=== PATIENT | female | born 1940 | race Two or more races ===

== ENCOUNTER 2024-01-03 22:57 | Emergency (ER) | payer OTHER, SELFPAY ==
[2024-01-03 22:58] VITALS: BMI 30.2
[2024-01-03 23:06] VITALS: BP 150/79; PULSE 86; RESP 18; TEMP 36.8; O2SAT 95
--- NOTE | 2024-01-03 23:18 | XR_ITS ---
Examination: CT brain head without contrast. 2-D sagittal coronal reconstructions Date and time of exam:January 03, 2024 11:26 PM Indications: Headaches high blood pressure and numbness in the hands today Comparison: April 30, 2023 CTDI: vol (mGy):52.80 DLP: (mGycm):1134 Technique: Multiple CT axial sections of the brain have been obtained, 5 mm slice thickness. Contrast has not been administered. 2-D sagittal, coronal reconstructions have been obtained Low dose protocols were performed. One or more of the following dose reduction techniques were used; automated exposure control, adjustment of the mA and/or KV according to patient size, use of iterative reconstruction technique. Findings: No significant ventricular enlargement. Intra-axial or extra-axial hemorrhage density is not seen. No mass effect or midline shift Basal cisterns are not remarkable. Fourth ventricle is midline. Cranial vault intact. Impression: Negative for acute hemorrhage, mass effect or midline shift
--- NOTE | 2024-01-03 23:19 | PD.EDRME ---
Rapid Medical Screening Exam E Arrival date/time: 01/03/24 22:57 83-year-old female with past medical history of diabetes, hyperlipidemia, complaining of headache and headache pressure has been ongoing for 4 days. Chief Complaint: Headache Time Seen by Provider: 01/03/24 23:14 Vital signs: Vital Signs Temperature 98.3 F 01/03/24 23:06 Pulse Rate 86 01/03/24 23:06 Respiratory Rate 18 01/03/24 23:06 Blood Pressure 150/79 H 01/03/24 23:06 Pulse Oximetry (%) 95 01/03/24 23:06 Oxygen Delivery Method Room Air 01/03/24 23:06 Vital signs reviewed by provider: Yes
--- NOTE | 2024-01-04 00:13 | PD.EDHA ---
ED Headache RME/HPI General Chief Complaint: Headache Stated Complaint: THINKS BP IS HIGH. HEADACHE;NIRMALA HANDS NUMBNESS Time Seen by Provider: 01/03/24 23:14 Source: patient and family Arrival date/time: 01/03/24 22:57 83-year-old female with past medical history of diabetes, hyperlipidemia, complaining of headache and head pressure has been ongoing for 4 days. Patient denies any chills, fever, cough, shortness of breath, nausea vomiting, chest pain, diarrhea, dizziness, extremity weakness, or any other associated symptoms. Mode of arrival: ambulatory Limitations: no limitations RME / HPI RME / HPI Narrative: 01/03/24 22:57 83-year-old female with past medical history of diabetes, hyperlipidemia, complaining of headache and headache pressure has been ongoing for 4 days. Related Data Home Medications ?Medication ?Instructions ?Recorded ?Confirmed aspirin 81 mg tablet,delayed 81 mg PO DAILY 07/02/22 04/30/23 release metformin 1,000 mg tablet 1,000 mg PO BID 07/02/22 04/30/23 pantoprazole 40 mg tablet,delayed 40 mg PO DAILY 07/02/22 04/30/23 release propranolol 40 mg tablet 20 mg PO BID 07/02/22 04/30/23 ibuprofen 600 mg tablet 600 mg PO TID PRN Pain 04/30/23 04/30/23 loratadine 10 mg tablet 10 mg PO QDAY PRN Allergy Symptoms 04/30/23 04/30/23 montelukast 10 mg tablet 10 mg PO QPM 04/30/23 04/30/23 Previous Rx's ?Medication ?Instructions ?Recorded albuterol sulfate 90 mcg/actuation 2 puff inhalation Q6H PRN 02/01/23 aerosol inhaler (Ventolin HFA) shortness of breath or wheezing #8.5 grams ibuprofen 400 mg tablet 400 mg PO Q8H PRN pain #14 tabs 01/04/24 Allergies Allergy/AdvReac Type Severity Reaction Status Date / Time No Known Allergies Allergy Verified 01/03/24 23:00 Review of Systems Review of Systems Systems Reviewed: All systems reviewed, normal except as documented Constitutional Constitutional: Reports system reviewed and no additional complaints, except as documented, Denies body ache(s), Denies chills, Denies fever(s) and Reports headache(s) Eyes Eyes: Reports system reviewed and no additional complaints, except as documented and Denies change in vision ENT Ears, Nose, Mouth, and Throat: Reports system reviewed and no additional complaints, except as documented, Denies disequilibrium, Denies dizziness, Reports headache(s), Denies sore throat and Denies vertigo Cardiovascular Cardiovascular: Reports system reviewed and no additional complaints, except as documented, Denies chest pain and Denies dyspnea Respiratory Respiratory: Reports system reviewed and no additional complaints, except as documented, Denies chest congestion, Denies cough and Denies dyspnea Gastrointestinal Gastrointestinal: Reports system reviewed and no additional complaints, except as documented, Denies abdominal pain, Denies nausea and Denies vomiting Musculoskeletal Musculoskeletal: Reports system reviewed and no additional complaints, except as documented, Denies abnormal gait and Denies arthralgias Integumentary/Breasts Skin/Breast: Reports system reviewed and no additional complaints, except as documented, Denies erythema, Denies rash and Denies wounds Neurologic Neurologic: Reports system reviewed and no additional complaints, except as documented, Denies abnormal gait, Denies disequilibrium, Denies dizziness, Reports headache(s) and Denies vertigo Past Medical History Past Medical History NEUROLOGIC: Negative Neurological Disorders or Seizures CARDIAC: Positive Cardiac Disorders, Hypercholesterolemia and Hypertension; Negative Congestive Heart Failure RESPIRATORY: Negative Chronic Obstructive Pulmonary Disease (COPD) or Asthma GASTROINTESTINAL: Positive Gastrointestinal Disorders, Pancreatitis and Gastroesophageal Reflux Disease GENITOURINARY: Negative Genitourinary Disorders or Renal Disease REPRODUCTIVE: Positive Previous Pregnancies MUSCULOSKELETAL: Negative Musculoskeletal Disorders ENT: Positive Cataracts ENDOCRINE: Positive Endocrine Disorders and Diabetes Mellitus Type 2; Negative Diabetes Mellitus Type 1 HEMATOLOGIC: Negative Blood Disorders, Sickle Cell Disease or Clotting Problems OTHER HISTORY: Negative Hospitalization, Autoimmune Disease, Blood Transfusions, Anesthesia Reactions, Chicken Pox, Measles, Mumps or Cancer Family History FAMILY HISTORY: Positive Family Cardiac Disorders and Family Cancer; Negative Family Psychiatric Problems, Family Respiratory Disorders, Family Gastrointestinal Problems or Family Anesthesia Reaction Surgical History SURGICAL: Positive Hysterectomy Social History SMOKING STATUS: Never smoker SECOND HAND EXPOSURE: No SUBSTANCE USE: does not use ED Exam General Limitations: Present no limitations General appearance: Present alert and in no apparent distress Head Head exam: Present atraumatic Eye Eye exam: Present normal appearance, PERRL and EOMI ENT ENT exam: Present normal exam, normal oropharynx and mucous membranes moist Neck Neck exam: Present normal inspection, full ROM and trachea midline Chest Chest inspection: Present normal inspection and symmetric chest wall rise Respiratory Respiratory exam: Present normal lung sounds bilaterally Cardiovascular Cardiovascular exam: Present regular rate, normal rhythm and normal heart sounds Abdominal Exam Abdominal exam: Present soft and normal bowel sounds Extremities Exam Extremities exam: Present normal inspection and full ROM Back Exam Back exam: Present normal inspection and full ROM Neurological Exam Neurological exam: Present alert, oriented X3 and CN II-XII intact Psychiatric Psychiatric exam: Present normal affect and normal mood Skin Skin exam: Present warm, dry, intact and normal color Course Quality Measures none Orders Category Date Time Status CT head/brain wo con Stat Exams 01/03/24 23:18 Completed Acetaminophen Tab [Tylenol ES Tab] Med 01/04/24 00:03 Discontinued 1,000 mg PO X1 ONE Vital Signs Vital signs: Vital Signs Temperature 98.3 F 01/03/24 23:06 Pulse Rate 86 01/03/24 23:06 Respiratory Rate 18 01/03/24 23:06 Blood Pressure 150/79 H 01/03/24 23:06 Pulse Oximetry (%) 95 01/03/24 23:06 Oxygen Delivery Method Room Air 01/03/24 23:06 95% room air within normal limits Headache MDM Narrative MDM Narrative:: 83-year-old female with past medical history of diabetes, hyperlipidemia, complaining of headache and head pressure has been ongoing for 4 days. Patient denies any chills, fever, cough, shortness of breath, nausea vomiting, chest pain, diarrhea, dizziness, extremity weakness, or any other associated symptoms. Patient GCS of 15 answering questions with appropriate behavior. Patient ambulatory with steady gait. No focal weaknesses on exam. CT of head was negative for any acute process or abnormality. Patient discharged and instructed to have close follow-up with primary care provider in 24 to 48 hours and return immediately for any worsening symptoms or as needed. Patient data External records reviewed:: [facility] previous records Clinical information provided by:: patient and spouse Social determinants that could affect healthcare access:: none Patient has the following chronic illnesses:: See chart How is presenting disease/condition affected by chronic disease/condition?: uneffected by Evaluation data The following diagnostics were reviewed and interpreted by me:: radiology exam(s) Lab and/or radiology exams considered but not ordered:: Ordered Interpretation Summary: Interpreted by me Medications / Prescriptions Medications or Prescriptions considered but not ordered:: Ordered Medication administrations:: Medication Administration History Discontinued Medications Acetaminophen (Acetaminophen 500 Mg Tablet) 1,000 mg PO X1 ONE Stop: 01/04/24 00:04 Last Admin: 01/04/24 00:30 Dose: 1,000 mg Documented By: Given Consultations Consultation(s) initiated? (list below): No Diagnosis Differential diagnosis headache: migraine, tension headache, headache and sinusitis Most likely diagnosis given after review of the tests above:: Headache Admission Indicated Admission indicated?: not indicated Admission Request Was there a request for admission?: No Disposition Plan Disposition Plan: Discharge Discharge Attestation Discharge Attestation: The patient and all family members were given an opportunity to ask questions and understood the discharge instructions. Discharge instructions specifically effects, indications for sooner follow up or return to the emergency department, and the expected course of current diagnosis. Patient condition: Stable Discharge Plan Plan Patient Disposition: HOME (Self Care) Disposition Comment: Stable Prescriptions/Referrals Prescriptions/Med Rec: New ibuprofen 400 mg tablet 400 mg PO Q8H PRN (Reason: pain) Qty: 14 0RF No Action montelukast 10 mg Tablet 10 mg PO QPM ibuprofen 600 mg Tablet 600 mg PO TID PRN (Reason: Pain) loratadine 10 mg Tablet 10 mg PO QDAY PRN (Reason: Allergy Symptoms) aspirin 81 mg Tablet,Delayed Release (Dr/Ec) 81 mg PO DAILY propranolol 40 mg tablet 20 mg PO BID Hold Instructions: Resume on 04/17/24. follow up outpatient with PCP before restarting, causing bradicardia pantoprazole 40 mg tablet,delayed release (DR/EC) 40 mg PO DAILY Patient Comments: TAKE 1 TABLET BY MOUTH ONCE DAILY FOR PERSISTENT ACID REFLUX AND DIABETIC GASTROPARESIS metformin 1,000 mg tablet 1,000 mg PO BID albuterol sulfate [Ventolin HFA] 90 mcg/actuation HFA aerosol inhaler 2 puff inhalation Q6H PRN (Reason: shortness of breath or wheezing) Qty: 8.5 0RF Problem List Clinical Impression: Headache Patient/Caregiver Discharge Instructions Discharge Activity: activity as tolerated Education Materials: Self-Care for Headaches Additional Instructions: Take medication as prescribed. Follow-up with primary care provider in 24 to 48 hours. Return to the emergency department for any worsening symptoms or as needed. Print Language: Luxembourgish Stand Alone Forms: Griselda Award Info., Patient Portal Info Letter PA/MANDY Supervising Physician PA/MANDY Supervising Physician: Dr. Martinez
[2024-01-04] MEDS: ACETAMINOPHEN 500 MG TABLET 1000 MG PO (00:30)
== END 2024-01-04 01:13 | disposition home or self-care (01) ==
LOC: SERX 01-04 01:43
PROVIDERS: Emergency Provider Emergency Medicine; PCP Family Medicine
DX: R51.9 Headache, unspecified (principal)
CPT/HCPCS: 70450; 99284; A9270

== ENCOUNTER → 2024-02-18 | Outpatient (CLI) | payer OTHER, SELFPAY ==
[2024-02-18 09:06] LABS: Collection Type, Urine Clean Catch
[2024-02-18 09:23] LABS: Basophils % (Auto) 1 % (0-2.5); Eosinophils # (Auto) 0.3 Thou/mm3 (0.0-0.5); Eosinophils % (Auto) 5 % (0-10); Hematocrit 37.1 % (36.0-46.0); Hemoglobin 12.7 g/dL (12.0-16.0); Immature Granulocytes % (Auto) 0 % (0-0); Immature Granulocytes Auto 0.02 Thou/mm3 (0.00-0.00); Lymphocytes # (Auto) 2.1 Thou/mm3 (1.0-4.8); Lymphocytes % (Auto) 34 % (10-50); Mean Corpuscular HGB Conc 34.2 g/dl (31.0-37.0); Mean Corpuscular Hemoglobin 31.4 pg (25.0-35.0); Mean Corpuscular Volume 92 fL (80-100); Monocytes # (Auto) 0.5 Thou/mm3 (0.0-0.8); Monocytes % (Auto) 7 % (0-12); Neutrophils # (Auto) 3.4 Thou/mm3 (1.8-7.7); Neutrophils % (Auto) 54 % (37-80); Nucleated Red Blood Cell % 0 /100 WBC (0); Platelet Count 295 Thou/mm3 (140-440); RDW Standard Deviation 46.9 fL (36.4-46.3); Red Blood Count 4.04 Miln/mm3 (4.00-5.20); White Blood Count 6.3 Thou/mm3 (3.6-11.0)
[2024-02-18 09:35] LABS: Bilirubin,Urine Negative (Negative); Blood,Urine Trace (Negative); Clarity,Urine Clear (Clear/Hazy); Color,Urine Lt-Yellow (Lt Yel-Yel); Glucose, Urine Negative (Negative); Ketones,Urine Negative (Negative); Leukocyte Esterase,Urine Positive (Negative); Nitrite,Urine Negative (Negative); PH,Urine 6.5 (5.0-7.0); Protein,Urine Negative (Neg - Trace); RBC,Urine 3 /hpf (0-3); Specific Gravity,Urine 1.013 (1.001-1.035); Squamous Epithelial Cell,Urine < 1 /hpf (0-5); Urobilinogen,Urine Negative mg/dL (0.0-1.0); WBC,Urine 1 /hpf (0-5)
[2024-02-18 09:35] LABS: Glucose Estimated Average 128 mg/dL (80-131); Hemoglobin A1C 6.1 % Hgb (4.8-6.0)
[2024-02-18 09:52] LABS: Alanine Aminotransferase 18 U/L (10-49); Albumin, Serum 4.6 gm/dL (3.4-4.8); Albumin/Globulin Ratio 1.6 (1.2-2.2); Alkaline Phosphatase 74 U/L (46-116); Anion Gap 6 (7-16); Aspartate Amino Transferase 20 U/L (0-34); BUN/Creatinine Ratio 18 Ratio (12-20); Bilirubin,Total 0.6 mg/dL (0.3-1.2); Blood Urea Nitrogen 11 mg/dL (9-23); Calcium 9.7 mg/dL (8.3-10.6); Calcium (Corrected) 9.7 mg/dL (8.5-10.1); Carbon Dioxide 29.3 mMol/L (20.0-31.0); Cardiac Risk Estimate 2.7 RATIO (3.7-5.6); Chloride 104 mMol/L (98-107); Cholesterol 100 mg/dL (132-200); Creatinine (Component) 0.6 mg/dL (0.6-1.3); Globulin 2.8 gm/dL (2.3-3.5); Glucose 103 mg/dL (74-106); HDL Cholesterol 37 mg/dL (40-60); LDL Cholesterol,Calculated 47 mg/dL (0-130); Osmolality,Calculated 276 (275-295); Potassium 4.1 mMol/L (3.4-5.1); Sodium 139 mMol/L (136-145); Thyroid Stimulating Hormone 1.27 uIU/mL (0.55-4.78); Total Protein 7.4 gm/dL (5.7-8.2); Triglycerides 78 mg/dL (30-150); eGFR > 60 See Note
[2024-02-18 09:57] LABS: Creatinine MALB Rnd Ur 60 mg/dL (30-125); Microalbumin, Random Urine < 3 mg/L (0-300)
== END | disposition home or self-care (01) ==
LOC: COPL 08:30
PROVIDERS: PCP Family Medicine; Referring Provider Family Medicine; Visit Provider Family Medicine
DX: Z00.00 Encounter for general adult medical examination without abnormal findings (principal); E11.9 Type 2 diabetes mellitus without complications; E78.2 Mixed hyperlipidemia; I10 Essential (primary) hypertension
CPT/HCPCS: 36415; 80053; 80061; 81001; 82043; 82570; 83036; 84443; 85025

== ENCOUNTER → 2024-03-10 | Outpatient (CLI) | payer OTHER, SELFPAY ==
--- NOTE | 2024-03-10 | XR_ITS ---
Examination: PA lateral chest 2 views TECHNIQUE: Upright AP lateral chest 2 views Exam date and time: March 10, 2024 1229 hours Comparison February 01, 2023 INDICATIONS: Coughing fever beginning 4 days ago. 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
== END | disposition home or self-care (01) ==
LOC: CDIM 10:48
PROVIDERS: PCP Family Medicine; Referring Provider Family Medicine; Visit Provider Family Medicine
DX: R91.8 Other nonspecific abnormal finding of lung field (principal)
CPT/HCPCS: 71046

== ENCOUNTER 2024-03-15 16:00 | Inpatient (IN) | payer OTHER, MEDICARE, SELFPAY ==
[2024-03-15 16:01] VITALS: BMI 24.7
[2024-03-15 16:27] VITALS: BP 119/71; PULSE 82; RESP 18; TEMP 37.3; O2SAT 96
--- NOTE | 2024-03-15 16:35 | XR_ITS ---
Examination: PA lateral chest 2 views TECHNIQUE: Upright PA lateral chest 2 views Exam date and time: December 13, 2024 1649 hours Comparison March 10, 2024 INDICATIONS: Coughing and fever beginning 5 days ago. FINDINGS: Extensive bilateral lung opacity Mild prominence left ventricle Right axillary surgical clips Prominent osteopenia IMPRESSION: Extensive bilateral lung opacity most consistent with pneumonia Follow-up chest films strongly recommended to document clearing and exclude underlying pulmonary masses
--- NOTE | 2024-03-15 16:37 | PD.EDURI ---
Upper Respiratory Inf. RME/HPI General Chief Complaint: Fever Stated Complaint: FEVER X2 DAYS, COUGH X10 DAYS Source: patient Arrival date/time: 03/15/24 16:00 83-year-old female with a history of type 2 diabetes, hypertension presents to the emergency room with a chief complaint of cough and congestion x 10 days and fever x 2 days. Mode of arrival: ambulatory Limitations: no limitations Related Data Home Medications ?Medication ?Instructions ?Recorded ?Confirmed aspirin 81 mg tablet,delayed 81 mg PO DAILY 07/02/22 04/30/23 release metformin 1,000 mg tablet 1,000 mg PO BID 07/02/22 04/30/23 pantoprazole 40 mg tablet,delayed 40 mg PO DAILY 07/02/22 04/30/23 release propranolol 40 mg tablet 20 mg PO BID 07/02/22 04/30/23 Held on 05/03/23. Instructions: Resume on 04/17/24. follow up outpatient with PCP before restarting, causing bradicardia ibuprofen 600 mg tablet 600 mg PO TID PRN Pain 04/30/23 04/30/23 loratadine 10 mg tablet 10 mg PO QDAY PRN Allergy Symptoms 04/30/23 04/30/23 montelukast 10 mg tablet 10 mg PO QPM 04/30/23 04/30/23 Previous Rx's ?Medication ?Instructions ?Recorded albuterol sulfate 90 mcg/actuation 2 puff inhalation Q6H PRN 02/01/23 aerosol inhaler (Ventolin HFA) shortness of breath or wheezing #8.5 grams ibuprofen 400 mg tablet 400 mg PO Q8H PRN pain #14 tabs 01/04/24 Allergies Allergy/AdvReac Type Severity Reaction Status Date / Time No Known Allergies Allergy Verified 03/15/24 16:01 ED Exam General Limitations: Present no limitations Course Orders Category Date Time Status Bedside COVID-19 Antigen Test NOW Care 03/15/24 16:35 Active Bedside Influenza A&B Antigen Test NOW Care 03/15/24 16:35 Active XR chest 2V Stat Exams 03/15/24 16:35 Ordered Albuterol/Ipratr Rt Gracy [Duoneb Rt Gracy] Med 03/15/24 16:35 Discontinued 3 ml INH X1 ONE Dexamethasone Inj [Decadron Inj] Med 03/15/24 16:35 Discontinued 10 mg PO X1 ONE Vital Signs Vital signs: Vital Signs Temperature 99.1 F 03/15/24 16:27 Pulse Rate 82 03/15/24 16:27 Respiratory Rate 18 03/15/24 16:27 Blood Pressure 119/71 03/15/24 16:27 Pulse Oximetry (%) 96 03/15/24 16:27 Oxygen Delivery Method Room Air 03/15/24 16:27 Upper Respiratory Infection Medications / Prescriptions Medication administrations:: Medication Administration History Discontinued Medications Albuterol/Ipratropium (Albuterol/Ipratropium (Duoneb) Rt Gracy 3 Ml Nebu) 3 ml INH X1 ONE Stop: 03/15/24 16:36 Dexamethasone Sodium Phosphate (Dexamethasone Sod Phos Inj 10 Mg/Ml Vial) 10 mg PO X1 ONE Stop: 03/15/24 16:36 Discharge Plan Prescriptions/Referrals Prescriptions/Med Rec: No Action montelukast 10 mg Tablet 10 mg PO QPM ibuprofen 600 mg Tablet 600 mg PO TID PRN (Reason: Pain) loratadine 10 mg Tablet 10 mg PO QDAY PRN (Reason: Allergy Symptoms) ibuprofen 400 mg tablet 400 mg PO Q8H PRN (Reason: pain) Qty: 14 0RF aspirin 81 mg Tablet,Delayed Release (Dr/Ec) 81 mg PO DAILY propranolol 40 mg tablet 20 mg PO BID pantoprazole 40 mg tablet,delayed release (DR/EC) 40 mg PO DAILY Patient Comments: TAKE 1 TABLET BY MOUTH ONCE DAILY FOR PERSISTENT ACID REFLUX AND DIABETIC GASTROPARESIS metformin 1,000 mg tablet 1,000 mg PO BID albuterol sulfate [Ventolin HFA] 90 mcg/actuation HFA aerosol inhaler 2 puff inhalation Q6H PRN (Reason: shortness of breath or wheezing) Qty: 8.5 0RF Patient/Caregiver Discharge Instructions Print Language: Sinhala
[2024-03-15] MEDS: DEXAMETHASONE SOD PHOS INJ 10 MG/ML VIAL PO (16:46)
[2024-03-15 17:06] VITALS: PULSE 100; RESP 20; O2SAT 99
[2024-03-15] MEDS: ALBUTEROL/IPRATROPIUM (Duoneb) RT SOL 3 ML NEBU INH (17:06)
--- NOTE | 2024-03-15 17:21 | EDRME_ITS ---
Rapid Medical Screening Exam [facility], [facility] Arrival date/time: 03/15/24 16:00 83-year-old female with a history of type 2 diabetes, hypertension presents to the emergency room with a chief complaint of fever, congestion, shortness of breath. Patient states she called her primary care provider and was sent to the emergency room to rule out worsening pneumonia. I have greeted and performed a focused initial assessment of this patient. A comprehensive ED assessment and evaluation of the patient, analysis of all test results, and completion of the medical decision making process will be conducted by additional ED providers. Chief Complaint: Fever Vital signs: Vital Signs Temperature 99.1 F 03/15/24 16:27 Pulse Rate 82 03/15/24 16:27 Respiratory Rate 18 03/15/24 16:27 Blood Pressure 119/71 03/15/24 16:27 Pulse Oximetry (%) 96 03/15/24 16:27 Oxygen Delivery Method Room Air 03/15/24 16:27 Vital signs reviewed by provider: Yes
--- NOTE | 2024-03-15 18:50 | PD.EDFEVER ---
ED Fever RME/HPI General Chief Complaint: Fever Stated Complaint: FEVER X2 DAYS, COUGH X10 DAYS Time Seen by Provider: 03/15/24 18:50 Arrival date/time: 03/15/24 16:00 83 year old female with past medical history of DM, HTN present to emergency room with c/o of fever for 4 days , cough congestion and shortness of breath the past [address] zpack and bactrim with minimal improvement. LOCATION: Chest SEVERITY: Symptoms are described as being severe with limitations on activities of daily living CONTEXT: The patient is unable to identify any inciting events. DURATION/TIMING: The symptoms started approximately 10 days ago and have been constant since and have been progressive getting worse. ASSOCIATED SYMPTOMS: The patient is unable to identify any other associated symptoms. MODIFYING FACTORS: The patient is unable to identify any alleviating or aggravating symptoms. PERTINENT ROS: no pleuritic pain, no ripping or tearing sensations, denies any lower extremity edema and no unilateral swelling, no chest pain no nausea,vomiting, diarrhea, no dizziness/headache no rash no loc/syncope episode PCP: Iris REVIEW OF SYSTEMS: See History of Present Illness - with the exception of those mentioned in the history of present illness, all other systems reviewed and reported as negative GENERAL: In general the patient is awake, interactive, in an emergency department gurney. HEAD/EYES/EARS/NOSE/THROAT: normo-cephalic, atraumatic, mucus membranes are moist, anicteric, palpebral conjunctiva is pink, trachea is midline. CARDIOVASCULAR: regular rate and regular rhythm, no murmurs, heart sounds are not distant, strong pulses in all four extremities that are equal and symmetric bilateral upper and lower extremities, normal capillary refill. CHEST/PULMONARY: + intermittent cough noted. normal chest rise and fall, good air movement, clear to auscultation bilaterally, normal inspiratory to expiratory ratios without evidence of respiratory distress. NECK: No midline/Paraspinal tenderness, no step off ROM/Strenght intact No Kernig and bruzinski sign. No trauma ABDOMEN: soft, not tender, no masses appreciated BACK: normal range of motion without pain. NEUROLOGICAL: cranio-facial features are symmetric, moves all four extremities equally without obvious limitations or weakness. EXTREMITY: no tenderness to palpation over the long bones or large joints of the bilateral upper and lower extremities, no joint swelling, no joint erythema, no signs of trauma, no unilateral leg swelling and no peripheral edema. SKIN: warm, dry, well-perfused, no jaundice, no rash, no telangiectasias or petechia. PSYCH: calm, cooperative, no evidence of psychosis or agitation RME / HPI RME / HPI Narrative: 03/15/24 16:00 83-year-old female with a history of type 2 diabetes, hypertension presents to the emergency room with a chief complaint of fever, congestion, shortness of breath. Patient states she called her primary care provider and was sent to the emergency room to rule out worsening pneumonia. I have greeted and performed a focused initial assessment of this patient. A comprehensive ED assessment and evaluation of the patient, analysis of all test results, and completion of the medical decision making process will be conducted by additional ED providers. Related Data Home Medications ?Medication ?Instructions ?Recorded ?Confirmed aspirin 81 mg tablet,delayed 81 mg PO DAILY 07/02/22 04/30/23 release metformin 1,000 mg tablet 1,000 mg PO BID 07/02/22 04/30/23 pantoprazole 40 mg tablet,delayed 40 mg PO DAILY 07/02/22 04/30/23 release propranolol 40 mg tablet 20 mg PO BID 07/02/22 04/30/23 Held on 05/03/23. Instructions: Resume on 04/17/24. follow up outpatient with PCP before restarting, causing bradicardia ibuprofen 600 mg tablet 600 mg PO TID PRN Pain 04/30/23 04/30/23 loratadine 10 mg tablet 10 mg PO QDAY PRN Allergy Symptoms 04/30/23 04/30/23 montelukast 10 mg tablet 10 mg PO QPM 04/30/23 04/30/23 Previous Rx's ?Medication ?Instructions ?Recorded albuterol sulfate 90 mcg/actuation 2 puff inhalation Q6H PRN 02/01/23 aerosol inhaler (Ventolin HFA) shortness of breath or wheezing #8.5 grams ibuprofen 400 mg tablet 400 mg PO Q8H PRN pain #14 tabs 01/04/24 Allergies Allergy/AdvReac Type Severity Reaction Status Date / Time No Known Allergies Allergy Verified 03/15/24 16:01 Course Quality Measures none Orders Category Date Time Status Admit to Inpatient Status Routine Admission 03/15/24 20:32 Active Patient Condition Routine Admission 03/15/24 20:32 Ordered Bedside COVID-19 Antigen Test NOW Care 03/15/24 16:35 Active Bedside Influenza A&B Antigen Test NOW Care 03/15/24 16:35 Completed Insert IV NOW Care 03/15/24 17:20 Active Notify provider NEEDED Care 03/15/24 20:32 Active Obtain weight NOW Care 03/15/24 20:32 Active XR chest 2V Stat Exams 03/15/24 16:35 Completed Blood Culture (Lab) Stat Lab 03/15/24 18:30 Received CBC AM DRAW Lab 03/16/24 05:00 Ordered CBC AM DRAW Lab 03/17/24 05:00 Ordered CBC AM DRAW Lab 03/18/24 05:00 Ordered CBC AM DRAW Lab 03/19/24 05:00 Ordered CBC Stat Lab 03/15/24 18:30 Completed CMP [Comprehensive Metabolic Panel] AM DRAW Lab 03/16/24 05:00 Ordered CMP [Comprehensive Metabolic Panel] AM DRAW Lab 03/17/24 05:00 Ordered CMP [Comprehensive Metabolic Panel] AM DRAW Lab 03/18/24 05:00 Ordered CMP [Comprehensive Metabolic Panel] AM DRAW Lab 03/19/24 05:00 Ordered CMP [Comprehensive Metabolic Panel] Stat Lab 03/15/24 18:30 Completed Cocci Serology IgM with reflex to IgG [Cocci Serology, Lab 03/15/24 20:31 Ordered Unk History] Stat Lactate (Lactic Acid) Stat Lab 03/15/24 18:30 Completed Magnesium AM DRAW Lab 03/16/24 05:00 Ordered Magnesium AM DRAW Lab 03/17/24 05:00 Ordered Magnesium AM DRAW Lab 03/18/24 05:00 Ordered Magnesium AM DRAW Lab 03/19/24 05:00 Ordered Phosphorous AM DRAW Lab 03/16/24 05:00 Ordered Phosphorous AM DRAW Lab 03/17/24 05:00 Ordered Phosphorous AM DRAW Lab 03/18/24 05:00 Ordered Phosphorous AM DRAW Lab 03/19/24 05:00 Ordered Procalcitonin Stat Lab 03/15/24 18:30 Completed Sputum Culture and Gram Stain Stat Lab 03/15/24 20:31 Ordered Acetaminophen Tab [Tylenol Tab] Med 03/15/24 20:31 Active 650 mg PO Q6H PRN Acetaminophen Tab [Tylenol Tab] Med 03/15/24 20:31 Active 650 mg PO Q6H PRN Albuterol/Ipratr Rt Gracy [Duoneb Rt Gracy] Med 03/16/24 01:00 Active 3 ml INH Q6HRRT Albuterol/Ipratr Rt Gracy [Duoneb Rt Gracy] Med 03/15/24 16:35 Discontinued 3 ml INH X1 ONE Aspirin [Ecotrin] Med 03/15/24 20:31 Discontinued 81 mg PO X1 ONE Atorvastatin Calcium [Lipitor] Med 03/15/24 21:00 Active 20 mg PO HS Dexamethasone Inj [Decadron Inj] Med 03/15/24 16:35 Discontinued 10 mg PO X1 ONE HYDROcodone/APAP 10/325 [[place] 10/325] Med 03/15/24 20:31 Active 1 tab PO Q4HR PRN Montelukast Sodium [Singulair] Med 03/15/24 21:00 Active 10 mg PO HS Ondansetron Inj [Zofran Inj] Med 03/15/24 20:31 Active 4 mg IV Q6H PRN Pantoprazole Inj [Protonix Inj] Med 03/16/24 09:00 Active 40 mg IVP QDAY Promethazine/Dextromethorph [Phenergan Dm Syrup] Med 03/15/24 19:58 Discontinued 5 ml PO X1 ONE Sodium Chloride Rt Gracy 10% [NS Rt Gracy 10%] Med 03/15/24 20:31 Discontinued 5 ml INH X1 ONE cefTRIAXone/D5w 1gm IV premix [Rocephin/D5w 1gm IV Med 03/15/24 17:21 Discontinued premix] 50 ml IV X1 oxyCODONE/APAP 5/325 [Percocet 5/325] Med 03/15/24 20:31 Active 1 tab PO Q6H PRN Code Status Routine Oth 03/15/24 20:31 Ordered Sputum Induction PRN RT 03/15/24 20:45 Ordered Reevaluation(s) Reevaluation #1: patient report increase shortness of breath and dry cough on ambulation, and willing to be admit Vital Signs Vital signs: Vital Signs Temperature 99.1 F 03/15/24 16:27 Pulse Rate 82 03/15/24 16:27 Respiratory Rate 18 03/15/24 16:27 Blood Pressure 119/71 03/15/24 16:27 Pulse Oximetry (%) 96 03/15/24 16:27 Oxygen Delivery Method Room Air 03/15/24 16:27 Fever MDM Narrative MDM Narrative:: DISPOSITION: Emergency Department nursing documentation was reviewed including triage complaint, associated symptoms, administration of medications, response to therapy and vital signs. Given the history, physical exam, and review of laboratory and imaging studies the patient is determined to be unsafe for discharge and is being moved into the hospital for further diagnostic tests, treatments, stabilization, and monitored response to therapy. I communicated the history, physical exam, pertinent laboratory and imaging studies to the inpatient physician. The inpatient physician has access to electronic copies of all emergency department laboratory testing and imaging studies as well as medications ordered and administered. Patient data External records reviewed:: [facility] previous records Clinical information provided by:: patient Social determinants that could affect healthcare access:: none Patient has the following chronic illnesses:: dm, htn How is presenting disease/condition affected by chronic disease/condition?: exacerbated by Evaluation data The following diagnostics were reviewed and interpreted by me:: lab results, radiology exam(s) and EKG tracing(s) Lab and/or radiology exams considered but not ordered:: n/a Interpretation Summary: xray: Extensive bilateral lung opacity Mild prominence left ventricle Right axillary surgical clips Prominent osteopenia IMPRESSION: Extensive bilateral lung opacity most consistent with pneumonia Follow-up chest films strongly recommended to document clearing and exclude underlying pulmonary masses cbc: 14k cmp wnl lactic/proc negative review 03/10/24: xray: IMPRESSION: Findings most consistent with significant bilateral pulmonary fibrosis Consider superimposed pneumonia in the right upper lobe Medications / Prescriptions Medications or Prescriptions considered but not ordered:: n/a Medication administrations:: Medication Administration History Acetaminophen (Acetaminophen 325 Mg Tablet) 650 mg PO Q6H PRN PRN Reason: PAIN SCALE 1-3 (mild Stop: 04/14/24 20:30 Acetaminophen (Acetaminophen 325 Mg Tablet) 650 mg PO Q6H PRN PRN Reason: Fever >100 Stop: 04/14/24 20:30 Hydrocodone Bitart/Acetaminophen (Hydrocodone/Apap 10/325 Tab) 1 tab PO Q4HR PRN PRN Reason: PAIN SCALE 7-10 (Severe Stop: 03/20/24 20:30 Albuterol/Ipratropium (Albuterol/Ipratropium (Duoneb) Rt Gracy 3 Ml Nebu) 3 ml INH Q6HRRT SHRUTHI Stop: 04/15/24 00:59 Atorvastatin Calcium (Atorvastatin Calcium 20 Mg Tablet) 20 mg PO HS SHRTUHI Stop: 04/14/24 20:59 Montelukast Sodium (Montelukast Sodium 10 Mg Tablet) 10 mg PO HS SHRUTHI Stop: 04/14/24 20:59 Ondansetron HCl (Ondansetron Inj 2 Mg/Ml Inj 2 Ml) 4 mg IV Q6H PRN; Protocol PRN Reason: NAUSEA OR VOMITING Stop: 04/14/24 20:30 Oxycodone/Acetaminophen (Oxycodone/Apap 5/325 Tablet) 1 tab PO Q6H PRN PRN Reason: PAIN SCALE 4-6 (Moderate Stop: 03/20/24 20:30 Pantoprazole Sodium (Pantoprazole Inj 40 Mg Vial) 40 mg IVP QDAY SHRUTHI Stop: 04/15/24 08:59 Discontinued Medications Albuterol/Ipratropium (Albuterol/Ipratropium (Duoneb) Rt Gracy 3 Ml Nebu) 3 ml INH X1 ONE Stop: 03/15/24 16:36 Last Admin: 03/15/24 17:06 Dose: 3 ml Documented By: JT Aspirin (Aspirin Ec 81 Mg Tabec) 81 mg PO X1 ONE Stop: 03/15/24 20:32 Dexamethasone Sodium Phosphate (Dexamethasone Sod Phos Inj 10 Mg/Ml Vial) 10 mg PO X1 ONE Stop: 03/15/24 16:36 Last Admin: 03/15/24 16:46 Dose: 10 mg Documented By: Ceftriaxone Sodium/Dextrose (Rocephin/D5w 1gm Iv Premix) 50 mls @ 100 mls/hr IV X1 ONE Stop: 03/15/24 17:50 Promethazine HCl/Dextromethorphan (Promethazine/Dm Syrup 5 Ml Dose) 5 ml PO X1 ONE; Protocol Stop: 03/15/24 19:59 Sodium Chloride (Sodium Chloride Rt 10% 15 Ml Nebu) 5 ml INH X1 ONE Stop: 03/15/24 20:32 as stated above Consultations Consultation(s) initiated? (list below): Yes Consultation #1 (Physician, Specialty, Details): Dr. Stahl/resident will come evaluated the patient for admission Diagnosis Fever Differential Diagnosis: fever of unknown origin, community acquired pneumonia, viral infection, sepsis and influenza Most likely diagnosis given after review of the tests above:: bilateral pneumonia Admission Indicated Admission indicated?: indicated Explain why admission is indicated or not indicated:: fail outpatient oral antibiotics Admission Request Was there a request for admission?: No Disposition Plan Disposition Plan: Admit Discharge Plan Plan Patient Disposition: Admit Acute Care w/in Hospital Prescriptions/Referrals Prescriptions/Med Rec: No Action montelukast 10 mg Tablet 10 mg PO QPM ibuprofen 600 mg Tablet 600 mg PO TID PRN (Reason: Pain) loratadine 10 mg Tablet 10 mg PO QDAY PRN (Reason: Allergy Symptoms) ibuprofen 400 mg tablet 400 mg PO Q8H PRN (Reason: pain) Qty: 14 0RF aspirin 81 mg Tablet,Delayed Release (Dr/Ec) 81 mg PO DAILY propranolol 40 mg tablet 20 mg PO BID pantoprazole 40 mg tablet,delayed release (DR/EC) 40 mg PO DAILY Patient Comments: TAKE 1 TABLET BY MOUTH ONCE DAILY FOR PERSISTENT ACID REFLUX AND DIABETIC GASTROPARESIS metformin 1,000 mg tablet 1,000 mg PO BID albuterol sulfate [Ventolin HFA] 90 mcg/actuation HFA aerosol inhaler 2 puff inhalation Q6H PRN (Reason: shortness of breath or wheezing) Qty: 8.5 0RF Referrals: Quique España MD [Primary Care Provider] - In 1 week Problem List Clinical Impression: Bilateral pneumonia Patient/Caregiver Discharge Instructions Print Language: Vietnamese Stand Alone Forms: [facility] Award Info., Patient Portal Info Letter
[2024-03-15 18:56] LABS: Basophils # (Auto) 0.1 Thou/mm3 (0.0-0.2); Basophils % (Auto) 0 % (0-2.5); Eosinophils # (Auto) 0.5 Thou/mm3 (0.0-0.5); Eosinophils % (Auto) 4 % (0-10); Hematocrit 36.2 % (36.0-46.0); Hemoglobin 12.1 g/dL (12.0-16.0); Immature Granulocytes % (Auto) 0 % (0-0); Immature Granulocytes Auto 0.06 Thou/mm3 (0.00-0.00); Lymphocytes # (Auto) 1.7 Thou/mm3 (1.0-4.8); Lymphocytes % (Auto) 12 % (10-50); Mean Corpuscular HGB Conc 33.4 g/dl (31.0-37.0); Mean Corpuscular Hemoglobin 30.9 pg (25.0-35.0); Mean Corpuscular Volume 92 fL (80-100); Monocytes # (Auto) 0.5 Thou/mm3 (0.0-0.8); Monocytes % (Auto) 4 % (0-12); Neutrophils # (Auto) 10.8 Thou/mm3 (1.8-7.7); Neutrophils % (Auto) 80 % (37-80); Nucleated Red Blood Cell % 0 /100 WBC (0); Platelet Count 386 Thou/mm3 (140-440); RDW Standard Deviation 47.2 fL (36.4-46.3); Red Blood Count 3.92 Miln/mm3 (4.00-5.20); White Blood Count 13.6 Thou/mm3 (3.6-11.0)
[2024-03-15 19:26] LABS: Alanine Aminotransferase 27 U/L (10-49); Albumin, Serum 4.5 gm/dL (3.4-4.8); Albumin/Globulin Ratio 1.4 (1.2-2.2); Alkaline Phosphatase 82 U/L (46-116); Anion Gap 9 (7-16); Aspartate Amino Transferase 28 U/L (0-34); BUN/Creatinine Ratio 18 Ratio (12-20); Bilirubin,Total 0.4 mg/dL (0.3-1.2); Blood Urea Nitrogen 11 mg/dL (9-23); Calcium 9.2 mg/dL (8.3-10.6); Calcium (Corrected) 9.2 mg/dL (8.5-10.1); Carbon Dioxide 26.6 mMol/L (20.0-31.0); Chloride 102 mMol/L (98-107); Creatinine (Component) 0.6 mg/dL (0.6-1.3); Estimated Creatinine Clearance 63.5 mL/min (>60); Globulin 3.3 gm/dL (2.3-3.5); Glucose 143 mg/dL (74-106); Osmolality,Calculated 277 (275-295); Potassium 4.1 mMol/L (3.4-5.1); Procalcitonin 0.06 ng/ml (0.0-0.49); Sodium 138 mMol/L (136-145); Total Protein 7.8 gm/dL (5.7-8.2); eGFR > 60 See Note
[2024-03-15 19:54] VITALS: PULSE 83; O2SAT 95
--- NOTE | 2024-03-15 20:36 | PD.RESHP ---
Documentation for date of: 03/15/24 [facility] History of Present Illness History of present illness: This is an 83-year-old female PMHx of HTN, HLD, diabetes, CVA 10 years ago, seasonal allergies, and depression presenting with 10 days of productive cough with green sputum after failing outpatient ANTIBIOTIC therapy. She saw her PCP recently for cough. Chest x-ray done showed significant bilateral pulmonary fibrosis and possible superimposed pneumonia. She completed course of BACTRIM, AZITHROMYCIN and STEROIDS without improvement in symptoms. She is endorsing persistent and worsening cough with productive green sputum. Additionally, she reports night sweats over the last 3 nights, and fever of 101 last night. Reports 20 lbs unintentional weight loss over the last 6 months and attributes it to getting normal, without associated GI symptoms such as abdominal pain, N/V/D/C, or appetite change. She travels to [place] annually, last visit was last summer, but denies sick exposure. She was seen by Dr. Crane outpatient last year who did a chest CT showing chronic lung scarring, no mention of fibrosis, per daughter at bedside, who is a nurse and is [facility]. I was unable to find a copy of the CT on file. Denies severe headaches, dizziness, loss of consciousness, chest pain, shortness of breath, or cold intolerance, GI or urinary symptoms. Will admit for observation and further workup. ED COURSE: Cough on exam, worse with deep inspiration, otherwise NAD. Bilateral coarse sound, worse in left upper quadrant. Trace bilateral lower extremity edema. Vitals are within normal limits, on room air. CBC significant for WBC 13.6. CMP significant for GLUCOSE 143, otherwise within normal limits including Pro-Calc. CXR showed extensive bilateral pneumonia, almost persistent with CXR from 03/10/2024. PMHx: HTN, HLD, DM, CVA 10 years ago, allergies, depression. PSHx: Lobectomy of bilateral armpits. FHx: Daughter at 60 y/o from leukemia MEDS: Pending med rec. ALLERGIES: NKA SH: Denies alcohol, tobacco or drug use. Exam Vital Signs Temp Pulse Resp BP Pulse Ox O2 Del Method 99.1 F 83 20 119/71 95 Room Air 03/15/24 16:27 03/15/24 19:54 03/15/24 17:06 03/15/24 16:27 03/15/24 19:54 03/15/24 19:54 Narrative Exam GENERAL Normal appearing elderly female, NAD, on room air. HEENT NCAT.?ALIA. Oral mucosa is moist. Patent Nares NECK Supple, nontender, no thyromegaly, no meningismus, no JVD, no step offs CHEST RRR, no m/g/r Coarse bilateral breath sounds, worse in left upper quadrant. Atraumatic, nontender, no crepitus, symmetrical expansion. ABDOMEN Soft, flat, nontender. No guarding/rebound tenderness/masses. Bowel sounds presents EXTREMITIES Nontender, no cyanosis, no edema Trace edema bilateral lower extremities SKIN Warm and dry, no jaundice/rashes. 2 distinct hard, nonmobile masses of the scalp that are tender to palpation, measuring about 30 mm diameter each. No overlying skin changes. NEUROMUSCULAR No lumbar or midline, no CVA, no paraspinal muscle spasm or tenderness. Moves all 4 extremities well, with full ROM and good CSM. AGUILAR x4, CN II-XII grossly intact. No focal neurologic deficits. PSYCHIATRY Normal mood and affect, cooperative, no SI or HI or hallucinations. Results: Labs 03/15/24 18:30 03/15/24 18:30 Labs: Short CBC 03/15/24 Range/Units 18:30 WBC 13.6 H (3.6-11.0) Thou/mm3 Hgb 12.1 (12.0-16.0) g/dL Hct 36.2 (36.0-46.0) % Plt Count 386 D (140-440) Thou/mm3 BMP 03/15/24 18:30 Sodium 138 Potassium 4.1 Chloride 102 Carbon Dioxide 26.6 BUN 11 Creatinine 0.6 Glucose 143 H Calcium 9.2 Liver Function 03/15/24 Range/Units 18:30 Total Bilirubin 0.4 (0.3-1.2) mg/dL AST 28 (0-34) U/L ALT 27 (10-49) U/L Alkaline Phosphatase 82 (46-116) U/L Albumin 4.5 (3.4-4.8) gm/dL Quality Measures Quality Measures none Advance care planning discussed with:: patient and child Medications Home Medications and Allergies Home Medications ?Medication ?Instructions ?Recorded ?Confirmed ?Type aspirin 81 mg tablet,delayed 81 mg PO DAILY 07/02/22 04/30/23 History release metformin 1,000 mg tablet 1,000 mg PO BID 07/02/22 04/30/23 History pantoprazole 40 mg tablet,delayed 40 mg PO DAILY 07/02/22 04/30/23 History release propranolol 40 mg tablet 20 mg PO BID 07/02/22 04/30/23 History Held on 05/03/23. Instructions: Resume on 04/17/24. follow up outpatient with PCP before restarting, causing bradicardia ibuprofen 600 mg tablet 600 mg PO TID PRN Pain 04/30/23 04/30/23 History loratadine 10 mg tablet 10 mg PO QDAY PRN Allergy Symptoms 04/30/23 04/30/23 History montelukast 10 mg tablet 10 mg PO QPM 04/30/23 04/30/23 History Allergies Allergy/AdvReac Type Severity Reaction Status Date / Time No Known Allergies Allergy Verified 03/15/24 16:01 Visit Medications Acetaminophen (Acetaminophen 325 Mg Tablet) 650 mg PO Q6H PRN PRN Reason: PAIN SCALE 1-3 (mild Stop: 04/14/24 20:30 Acetaminophen (Acetaminophen 325 Mg Tablet) 650 mg PO Q6H PRN PRN Reason: Fever >100 Stop: 04/14/24 20:30 Hydrocodone Bitart/Acetaminophen (Hydrocodone/Apap 10/325 Tab) 1 tab PO Q4HR PRN PRN Reason: PAIN SCALE 7-10 (Severe Stop: 03/20/24 20:30 Albuterol/Ipratropium (Albuterol/Ipratropium (Duoneb) Rt Gracy 3 Ml Nebu) 3 ml INH Q6HRRT SHRUTHI Stop: 04/15/24 00:59 Atorvastatin Calcium (Atorvastatin Calcium 20 Mg Tablet) 20 mg PO HS SHRUTHI Stop: 04/14/24 20:59 Montelukast Sodium (Montelukast Sodium 10 Mg Tablet) 10 mg PO HS SHRUTHI Stop: 04/14/24 20:59 Ondansetron HCl (Ondansetron Inj 2 Mg/Ml Inj 2 Ml) 4 mg IV Q6H PRN; Protocol PRN Reason: NAUSEA OR VOMITING Stop: 04/14/24 20:30 Oxycodone/Acetaminophen (Oxycodone/Apap 5/325 Tablet) 1 tab PO Q6H PRN PRN Reason: PAIN SCALE 4-6 (Moderate Stop: 03/20/24 20:30 Pantoprazole Sodium (Pantoprazole Inj 40 Mg Vial) 40 mg IVP QDAY SHRUTHI Stop: 04/15/24 08:59 Discontinued Medications Albuterol/Ipratropium (Albuterol/Ipratropium (Duoneb) Rt Gracy 3 Ml Nebu) 3 ml INH X1 ONE Stop: 03/15/24 16:36 Last Admin: 03/15/24 17:06 Dose: 3 ml Aspirin (Aspirin Ec 81 Mg Tabec) 81 mg PO X1 ONE Stop: 03/15/24 20:32 Dexamethasone Sodium Phosphate (Dexamethasone Sod Phos Inj 10 Mg/Ml Vial) 10 mg PO X1 ONE Stop: 03/15/24 16:36 Last Admin: 03/15/24 16:46 Dose: 10 mg Ceftriaxone Sodium/Dextrose (Rocephin/D5w 1gm Iv Premix) 50 mls @ 100 mls/hr IV X1 ONE Stop: 03/15/24 17:50 Promethazine HCl/Dextromethorphan (Promethazine/Dm Syrup 5 Ml Dose) 5 ml PO X1 ONE; Protocol Stop: 03/15/24 19:59 Sodium Chloride (Sodium Chloride Rt 10% 15 Ml Nebu) 5 ml INH X1 ONE Stop: 03/15/24 20:32 Assessment & Plan Plan In summary: 83-year-old female PMHx of HTN, HLD, diabetes, CVA 10 years ago, seasonal allergies, and depression admitted under observation for commune acquired pneumonia after failing outpatient ANTIBIOTICS. Continued acquired pneumonia Chronic lung fibrosis Leukocytosis 10 days of cough with productive green sputum. Failed outpatient BACTRIM/AZITHROMYCIN/STEROIDS. Negative influenza A/B and COVID on admission. Returning with worsening symptoms. Has coarse breath sound bilaterally, worse on the left. Reports new fever, and night sweats. Has 6 months of unintentional [address] scan outpatient 1 year ago showing chronic lung scarring (per daughter). CXR with extensive fibrosis in addition to extensive bilateral pneumonia, consistent with CXR from 03/10/2024. Currently afebrile, satting well on room air even with ambulation. Low suspicion for tuberculosis, no hemoptysis, chest pain, or cavitary lesion on CXR. ? Admit for observation given failed ANTIBIOTICS and worsening symptoms ? Continue DOXYCYCLINE BID (02/12 to present) ? Continue AZITHROMYCIN daily (02/12 to present) ? Continue DuoNebs q.6h. scheduled ? Pending sputum culture ? Pending cocci titer ? Pending RSV, MRSA ? Consider high-resolution CT scan to evaluate fibrosis HTN, HLD Currently normotensive. Daughter to bring medication list. ? Consider resuming home medications as indicated. ? Continue ATORVASTATIN 20 mg HS T2DM, well-controlled GLUCOSE 163 on admission. A1C 6.1 from 02/18/24. ? INSULIN sliding scale ? Accu-Cheks Hx of CVA Occurred 10 years ago, no residual deficits. ? Continue home ASPIRIN 81 mg daily Seasonal allergies ? Continue home MONTELUKAST 10 mg daily Depression Diagnosed with depression after her daughter 1 year ago. Daughter to bring med list. ? Consider restarting home meds when med rec is done Incidental findings Reports multiple distinct growth over the scalp that come and go over the last 3-6 months. Has a history of lipomas in bilateral armpit with Lipectomy. Daughter from leukemia at the age of 61. On exam, there were 2 distinct hard masses that are immobile, tender to palpation, measuring roughly 30 mm each. ? Recommended outpatient follow-up. Health maintenance Diet: CHO consistent GI prophylaxis: PROTONIX DVT prophylaxis: LOVENOX Antibiotics: CEFTRIAXONE, AZITHROMYCIN CODE STATUS: DNR Disposition: Workup for pneumonia Patient case was discussed with attending, Khadar Stahl MD. Simon Fowler DO YI Attending Provider Attestation/Addendum I have examined the patient, reviewed labs and imaging findings, discussed the case with the resident(s), and reviewed entered orders. I agree with the plan of care as outlined in this note, with these additional summaries/recommendations: Patient is a 83-year-old female with a medical history of [id number] diabetes mellitus type 2, primary hypertension, hyperlipidemia, history of CVA with no deficits, and COPD who presents to [facility] emergency department on 03/15/2024 with chief complaints of worsening shortness of breath, productive cough, and fever who was found to have extensive bilateral pneumonia. Patient has failed outpatient antibiotics with progressively worsening symptoms and we will admit to observation for further management. # Community-acquired pneumonia Symptoms have been progressively worsening for approximately 10 days. Patient failed outpatient antibiotic course On admission WBC count 13.6 CXR: Extensive bilateral lung opacities most consistent with pneumonia Curb 65 score: 1 point indicating 2.7% 30-day mortality risk Plan: Blood cultures taken in the ED. Start IV Rocephin and p.o. doxycycline. Order cocci serology. Anticipate discharge in the next 24 to 48 hours if symptoms improve. If no improvement, we may consider ordering CT chest to evaluate further. #?COPD #Pulmonary Fibrosis Does not appear to be in COPD exacerbation at this time, unclear etiology for pulmonary fibrosis Plan: Status post PO Decadron 10 mg in the ED. Start DuoNebs every 6 hours. Resume home Singulair. # Diabetes mellitus type 2 Well controlled 02/18/24 S1C 6.1% Target BS of 140-180 while hospitalized Plan: Start insulin sliding scale with Accu-Cheks # Primary hypertension: Resume home antihypertensives Dr. Stahl
[2024-03-15] MEDS: PROMETHAZINE/DM SYRUP 5 ML DOSE PO (21:19)
[2024-03-15] MEDS: cefTRIAXone/D5w 1gm IV premix 50 ML IV (21:19)
[2024-03-15] MEDS: ASPIRIN EC 81 MG TABEC PO (21:25)
[2024-03-15] MEDS: ATORVASTATIN CALCIUM 20 MG TABLET PO (21:26)
[2024-03-15 21:31] VITALS: BP 128/70; PULSE 71; RESP 20; TEMP 36.7; O2SAT 96; O2SAT 97
[2024-03-15] MEDS: DOXYCYCLINE 100 MG TABLET PO (22:35)
--- NOTE | 2024-03-15 22:50 | PC.RT ---
Sputum culture collected and sent to lab for analysis.
[2024-03-15 23:15] VITALS: BP 132/78; PULSE 88; O2SAT 96
--- NOTE | 2024-03-15 23:27 | PC.NURSE ---
attempted to call report at [phone] no answer. [phone] kait called to [facility]. pt taken to [phone] by wheel chair.
[2024-03-15 23:37] VITALS: BMI 24.7
[2024-03-16] VITALS (11 sets, daily range): BP systolic 102–138; BP diastolic 55–73; PULSE 65–86; RESP 16–20; TEMP 36.1–36.6; O2SAT 94–99
[2024-03-16 00:05] LABS: Respiratory Syncytial Virus Ag Negative (Negative)
[2024-03-16] MEDS: MONTELUKAST SODIUM 10 MG TABLET PO ×2 (00:25→20:19)
[2024-03-16] MEDS: ALBUTEROL/IPRATROPIUM (Duoneb) RT SOL 3 ML NEBU INH ×4 (00:57→19:17)
[2024-03-16 05:56] LABS: Basophils % (Auto) 0 % (0-2.5); Eosinophils % (Auto) 0 % (0-10); Hematocrit 33.1 % (36.0-46.0); Hemoglobin 10.9 g/dL (12.0-16.0); Immature Granulocytes % (Auto) 0 % (0-0); Immature Granulocytes Auto 0.04 Thou/mm3 (0.00-0.00); Lymphocytes # (Auto) 0.9 Thou/mm3 (1.0-4.8); Lymphocytes % (Auto) 10 % (10-50); Mean Corpuscular HGB Conc 32.9 g/dl (31.0-37.0); Mean Corpuscular Hemoglobin 30.7 pg (25.0-35.0); Mean Corpuscular Volume 93 fL (80-100); Monocytes # (Auto) 0.2 Thou/mm3 (0.0-0.8); Monocytes % (Auto) 2 % (0-12); Neutrophils # (Auto) 8.1 Thou/mm3 (1.8-7.7); Neutrophils % (Auto) 88 % (37-80); Nucleated Red Blood Cell % 0 /100 WBC (0); Platelet Count 370 Thou/mm3 (140-440); Red Blood Count 3.55 Miln/mm3 (4.00-5.20); White Blood Count 9.2 Thou/mm3 (3.6-11.0)
[2024-03-16 06:25] LABS: Alanine Aminotransferase 24 U/L (10-49); Albumin, Serum 4.2 gm/dL (3.4-4.8); Albumin/Globulin Ratio 1.4 (1.2-2.2); Alkaline Phosphatase 69 U/L (46-116); Anion Gap 10 (7-16); Aspartate Amino Transferase 17 U/L (0-34); BUN/Creatinine Ratio 17 Ratio (12-20); Bilirubin,Total 0.3 mg/dL (0.3-1.2); Blood Urea Nitrogen 10 mg/dL (9-23); Calcium 9.3 mg/dL (8.3-10.6); Calcium (Corrected) 9.3 mg/dL (8.5-10.1); Carbon Dioxide 26.3 mMol/L (20.0-31.0); Chloride 102 mMol/L (98-107); Creatinine (Component) 0.6 mg/dL (0.6-1.3); Estimated Creatinine Clearance 63.5 mL/min (>60); Globulin 2.9 gm/dL (2.3-3.5); Glucose 194 mg/dL (74-106); Magnesium 1.9 mg/dL (1.6-2.6); Osmolality,Calculated 279 (275-295); Phosphorous 3.2 mg/dL (2.4-5.1); Sodium 138 mMol/L (136-145); Total Protein 7.1 gm/dL (5.7-8.2); eGFR > 60 See Note
[2024-03-16] MEDS: ENOXAPARIN SOD INJ 40 MG/0.4 ML SYRINGE SC (09:47)
[2024-03-16] MEDS: ACETAMINOPHEN 325 MG TABLET PO (09:47)
[2024-03-16] MEDS: PANTOPRAZOLE INJ 40 MG VIAL IVP (09:47)
[2024-03-16] MEDS: DOXYCYCLINE 100 MG TABLET PO ×2 (09:47→20:20)
[2024-03-16] MEDS: BENZONATATE 100 MG CAPSULE PO (09:47)
[2024-03-16] MEDS: METOCLOPRAMIDE LIQD 10 MG/10 ML UDC PO (09:47)
[2024-03-16] MEDS: cefTRIAXone/D5w 1gm IV premix 50 ML IV (09:48)
[2024-03-16] MEDS: Magnesium Sulfate 2 GM Ivpb 2 GM/50 ML BAG IV (10:32)
--- NOTE | 2024-03-16 10:36 | XR_ITS ---
Examination: CT chest, without intravenous contrast. Sagittal and coronal 2-D reconstructions. Exam date and time: March 16, 2024 11:15 AM INDICATIONS: Coughing fever beginning 2 days ago, diagnosis pulmonary fibrosis on earlier chest imaging this month CTDI:vol (mGy) 9.72 DLP: (mGycm) 331 Technique: Multiple 3.0 mm axial sections of the chest to been obtained. Bone and lung density settings are obtained. Sagittal and coronal 2-D reconstructions have been obtained. Low dose protocols were performed. One or more of the following dose reduction techniques were used; automated exposure control, adjustment of the mA and/or KV according to patient size, use of iterative reconstruction technique. Findings: Mild enlargement cardiac contour AP dimension ascending thoracic aorta 3.7 cm No paratracheal tracheobronchial or bronchopulmonary adenopathy Moderate to severe bilateral pulmonary fibrosis No pleural disease No visualized liver or splenic lesion No gallstones No pancreatic or adrenal mass IMPRESSION: Moderate to severe diffuse bilateral pulmonary fibrosis
[2024-03-16 12:01] LABS: Cocci Serology, IgM Negative (Negative)
[2024-03-16] MEDS: guaiFENesin/P-EPHED TABLET 1 TAB PO ×2 (12:43→20:20)
--- NOTE | 2024-03-16 13:47 | PC.SS ---
Patient Hoa Huizar is a 83 Year old female admitted for PNA. SS met with patient at bedside, patient was able to review demographic information. Patient appeared to be alert and oriented to place, time and situation. Patient reports she lives at home with her , Ruel. Patient's daughter, Natalee Monterroso is patient's surrogate decision maker, [phone]. Patient utilizes a Cane to assist with ambulation. Patient is able to complete all ADl's independently. Patient's choice of pharmacy is [facility]. PCP is [facility]. At time of discharge patient will return back home. Family will provide transportation. Next of Kin: Natalee Monterroso [phone] Discharge plan: Home PCP:Taco Lei
--- NOTE | 2024-03-16 15:33 | ESPR_ITS ---
<Statement entered by Mckayla Canchola MD - 03/16/24 16:26> I discussed with and supervised my co-resident involved in the care of this patient. I agree with the assessment and plan as documented above. Patient seen at bedside, with . Patient saturating on room air, states she is feeling a lot better today than yesterday. Endorses expiratory cough, worsening recently despite completing outpatient antibiotics. Bilateral diffuse crackles on lung auscultation. She had a CT done in [place] in the past and was told she had scarring in her lungs. 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 CT ordered here showed moderate pulmonary fibrosis. Will give steroids and continue IV antibiotics to cover for CAP. Patient will ultimately need to follow up with outpatient pulmonology for her pulmonary fibrosis. Mckayla Canchola MD PGY-3 Documentation for date of: 03/16/24 Subjective Subjective Interval history: Patient notes improvement of breathing. She is still having a cough, no longer productive. Resting comfortably on room air. Will continue antibiotics and steroids. Ordered CT of the chest to further evaluate pulmonary fibrosis. Exam Vital Signs Temp Pulse Resp BP Pulse Ox O2 Del Method 97.6 F 65 18 102/55 L 99 Room Air 03/16/24 12:00 03/16/24 13:07 03/16/24 13:07 03/16/24 12:00 03/16/24 13:03/16/24 12:00 Narrative Exam Constitutional: Well nourished and in no acute distress Head: Normocephalic/Atraumatic Eyes: no conjunctival injection , symmetrical lids. ENMT: Moist Mucous Membranes CVS: RRR, S1 and S2 present, no murmurs, rubs or gallops . RESP: Crackles throughout, no increased work of breathing, on room air MSK: No lower extremity edema Skin: Warm to touch, Dry. No rashes or lesions. Neuro: Alert and oriented Psych: Appropriate mood and affect. Objective Labs 03/17/24 05:02 03/17/24 05:02 Labs: Laboratory Results - last 24 hr 03/15/24 03/15/24 03/15/24 18:30 21:06 22:39 WBC 13.6 H RBC 3.92 L Hgb 12.1 Hct 36.2 MCV 92 MCH 30.9 MCHC 33.4 RDW Std Deviation 47.2 H Plt Count 386 D Neut % (Auto) 80 Lymph % (Auto) 12 [place] % (Auto) 4 Eos % (Auto) 4 Baso % (Auto) 0 Neut # (Auto) 10.8 H Lymph # (Auto) 1.7 [place] # (Auto) 0.5 Eos # (Auto) 0.5 Baso # (Auto) 0.1 Immature Gran # (Auto) 0.06 H Absolute Nucleated RBC 0.00 Immature Gran % 0 Nucleated RBC % 0 Sodium 138 Potassium 4.1 Chloride 102 Carbon Dioxide 26.6 Anion Gap 9 BUN 11 Creatinine 0.6 Estim Creat Clear Calc 63.5 eGFR > 60 BUN/Creatinine Ratio 18 Glucose 143 H Calculated Osmolality 277 Lactic Acid 1.0 Calcium 9.2 Corrected Calcium 9.2 Phosphorus Magnesium Total Bilirubin 0.4 AST 28 ALT 27 Alkaline Phosphatase 82 Total Protein 7.8 Albumin 4.5 Globulin 3.3 Albumin/Globulin Ratio 1.4 Procalcitonin 0.06 Coccidioides IgM Ab Negative RSV Rapid Negative 03/16/24 04:35 WBC 9.2 RBC 3.55 L Hgb 10.9 L Hct 33.1 L MCV 93 MCH 30.7 MCHC 32.9 RDW Std Deviation 48.0 H Plt Count 370 Neut % (Auto) 88 H Lymph % (Auto) 10 [place] % (Auto) 2 Eos % (Auto) 0 Baso % (Auto) 0 Neut # (Auto) 8.1 H Lymph # (Auto) 0.9 L [place] # (Auto) 0.2 Eos # (Auto) 0.0 Baso # (Auto) 0.0 Immature Gran # (Auto) 0.04 H Absolute Nucleated RBC 0.00 Immature Gran % 0 Nucleated RBC % 0 Sodium 138 Potassium 4.0 Chloride 102 Carbon Dioxide 26.3 Anion Gap 10 BUN 10 Creatinine 0.6 Estim Creat Clear Calc 63.5 eGFR > 60 BUN/Creatinine Ratio 17 Glucose 194 H D Calculated Osmolality 279 Lactic Acid Calcium 9.3 Corrected Calcium 9.3 Phosphorus 3.2 Magnesium 1.9 Total Bilirubin 0.3 AST 17 ALT 24 Alkaline Phosphatase 69 Total Protein 7.1 Albumin 4.2 Globulin 2.9 Albumin/Globulin Ratio 1.4 Procalcitonin Coccidioides IgM Ab RSV Rapid Quality Measures Quality Measures none Advance care planning discussed with:: patient Assessment & Plan Assessment Current Active Medications: Generic Name Dose Route Start Last Admin Trade Name Freq PRN Reason Stop Dose Admin Acetaminophen 650 mg 03/15/24 20:31 Acetaminophen 325 Mg Tablet PO 04/14/24 20:30 Q6H PRN PAIN SCALE 1-3 (mild Acetaminophen 650 mg 03/15/24 20:31 Acetaminophen 325 Mg Tablet PO 04/14/24 20:30 Q6H PRN Fever >100 Hydrocodone Bitart/Acetaminophen 1 tab 03/15/24 20:31 Hydrocodone/Apap 10/325 Tab PO 03/20/24 20:30 Q4HR PRN PAIN SCALE 7-10 (Severe Albuterol/Ipratropium 3 ml 03/16/24 01:00 03/16/24 13:06 Albuterol/Ipratropium (Duoneb) Rt Gracy 3 Ml Nebu INH 04/15/24 00:59 3 ml Q6HRRT SHRUTHI Administration Atorvastatin Calcium 20 mg 03/15/24 21:00 03/15/24 21:26 Atorvastatin Calcium 20 Mg Tablet PO 04/14/24 20:59 20 mg HS SHRUTHI Administration Dexamethasone Sodium Phosphate 10 mg 03/16/24 16:00 Dexamethasone Sod Phos Inj 10 Mg/Ml Vial IV 03/16/24 16:01 X1 ONE Dextrose 25 ml 03/15/24 21:32 Dextrose 50%-Water Inj 50 Ml Syringe IV 04/14/24 21:31 Q15MIN PRN BG 50-70 responsive npo pt Dextrose 50 ml 03/15/24 21:32 Dextrose 50%-Water Inj 50 Ml Syringe IV 04/14/24 21:31 Q15MIN PRN BG <50 OR BG <70 & pt unresponsive Doxycycline Hyclate 100 mg 03/15/24 22:00 03/16/24 09:47 Doxycycline 100 Mg Tablet PO 03/22/24 21:59 100 mg BID SHRUTHI Administration Enoxaparin Sodium 40 mg 03/16/24 09:00 03/16/24 09:47 Enoxaparin Sod Inj 40 Mg/0.4 Ml Syringe SC 03/30/24 08:59 40 mg QDAY SHRUTHI Administration Glucagon 1 mg 03/15/24 21:32 Glucagon Inj 1 Mg Vial IM Q15MIN PRN BG <70, and no IV access Guaifenesin 1 tab 03/16/24 10:45 03/16/24 12:43 Guaifenesin/P-Ephed Tablet PO 04/15/24 10:44 1 tab BID SHRUTHI Administration Ceftriaxone Sodium/Dextrose 50 mls @ 100 mls/hr 03/16/24 09:00 03/16/24 09:48 Rocephin/D5w 1gm Iv Premix IV 03/23/24 08:59 100 mls/hr QDAY SHRUTHI Administration Insulin Human Lispro 0 unit 03/16/24 07:30 03/16/24 12:25 Insulin Lispro (Admelog) 1 Unit/0.01 Ml Unit SC 04/15/24 07:29 Not Given ACHS SHRUTHI Protocol Montelukast Sodium 10 mg 03/15/24 21:00 03/16/24 00:25 Montelukast Sodium 10 Mg Tablet PO 04/14/24 20:59 10 mg HS SHRUTHI Administration Ondansetron HCl 4 mg 03/15/24 20:31 Ondansetron Inj 2 Mg/Ml Inj 2 Ml IV 04/14/24 20:30 Q6H PRN NAUSEA OR VOMITING Protocol Pantoprazole Sodium 40 mg 03/16/24 09:00 03/16/24 09:47 Pantoprazole Inj 40 Mg Vial IVP 04/15/24 08:59 40 mg QDAY SHRUTHI Administration Promethazine HCl/Dextromethorphan 5 ml 03/16/24 09:32 Promethazine/Dm Syrup 5 Ml Dose PO 04/15/24 09:31 Q4HR PRN COUGH Protocol Plan In summary: 83-year-old female PMHx of HTN, HLD, diabetes, CVA 10 years ago, seasonal allergies, and depression admitted under observation for commune acquired pneumonia after failing outpatient ANTIBIOTICS. Community acquired pneumonia Pulmonary fibrosis Leukocytosis 10 days of cough with productive green sputum. Failed outpatient BACTRIM/AZITHROMYCIN/STEROIDS. Negative influenza A/B, COVID, RSV on admission. Returning with worsening symptoms. Reports new fever, night sweats. 6 months of unintentional 20 lb weight loss. CXR with extensive fibrosis in addition to extensive bilateral pneumonia, consistent with CXR from 03/10/2024. Currently afebrile, satting well on room air even with ambulation. Low suspicion for tuberculosis, imaging and clinical picture not consistent with this. Ordered CT of the chest which shows moderate to severe diffuse bilateral pulmonary fibrosis ? Doxycycline (02/12-present), ceftriaxone 1 g daily (02/12-present) ? s/p AZITHROMYCIN daily (02/12) ? DuoNebs q.4hr, CPT, IS ? Guanfacine as needed ? Dexamethasone 10 mg (02/12 - 02/13) ? Sputum with gram-positive cocci ? Pending cocci, MRSA ? Will need pulmonology follow-up outpatient for pulmonary fibrosis HTN, HLD ?Resume home amlodipine 5 mg daily ? Continue rosuvastatin 20 mg daily T2DM, well-controlled GLUCOSE 163 on admission. A1C 6.1 from 02/18/24. ? INSULIN sliding scale ? Accu-Cheks Hx of CVA Resume home aspirin 81 mg daily Seasonal allergies ? Continue home MONTELUKAST 10 mg daily Depression Incidental findings?resolved Health maintenance Diet: CHO consistent GI prophylaxis: PROTONIX DVT prophylaxis: LOVENOX Antibiotics: Ceftriaxone, doxycycline CODE STATUS: DNR Disposition: Workup for pneumonia, pulmonary fibrosis Patient case was discussed with attending, Dr. Patel. Deven Arreguin DO, PGY1 Attending Provider Attestation/Addendum IEdyta DO, attest that I was physically present for the nicholas portions of the service and evaluated the patient with the resident and I reviewed and discussed the case with the resident and agree with the resident's findings and plans of care as documented above Patient seen and evaluated this AM. Patient states that she is feeling improved and continues to have mild productive phlegm. Patient states she had a CT scan in [place] that showed scarring. She is noted to have bibasilar crackles, likely 2/2 pulmonary fibrosis as noted on CXR. Will repeat CT chest. Patient had completed bactrim and azithromycin outpatient and most recently was placed on augmentin without any resolution of her symptoms. Patient reports improvement following decadron given in the ED. She is not in respiratory distress and remains on room air. Suspect that patient has an acute exacerbation of IPF. Patient should f/u with pulmonology outpatient. Continue with IV steroids and await CT results.
[2024-03-16] MEDS: DEXAMETHASONE SOD PHOS INJ 10 MG/ML VIAL IV (16:04)
[2024-03-16] MEDS: PROMETHAZINE/DM SYRUP 5 ML DOSE PO (16:04)
[2024-03-16] MEDS: INSULIN LISPRO (AdmeLOG) 1 UNIT/0.01 ML UNIT SC ×2 (18:16→20:21)
[2024-03-16] MEDS: ATORVASTATIN CALCIUM 20 MG TABLET PO (20:20)
[2024-03-17 01:47] VITALS: PULSE 72; RESP 20; O2SAT 99
[2024-03-17] MEDS: ALBUTEROL/IPRATROPIUM (Duoneb) RT SOL 3 ML NEBU INH ×2 (01:47→06:37)
[2024-03-17 04:00] VITALS: BP 122/62; PULSE 90; RESP 18; TEMP 36.9; O2SAT 94
[2024-03-17 05:45] LABS: Basophils % (Auto) 0 % (0-2.5); Eosinophils % (Auto) 0 % (0-10); Hematocrit 31.9 % (36.0-46.0); Hemoglobin 10.8 g/dL (12.0-16.0); Immature Granulocytes % (Auto) 1 % (0-0); Immature Granulocytes Auto 0.06 Thou/mm3 (0.00-0.00); Lymphocytes # (Auto) 0.8 Thou/mm3 (1.0-4.8); Lymphocytes % (Auto) 7 % (10-50); Mean Corpuscular HGB Conc 33.9 g/dl (31.0-37.0); Mean Corpuscular Hemoglobin 31.3 pg (25.0-35.0); Mean Corpuscular Volume 93 fL (80-100); Monocytes # (Auto) 0.5 Thou/mm3 (0.0-0.8); Monocytes % (Auto) 4 % (0-12); Neutrophils # (Auto) 11.3 Thou/mm3 (1.8-7.7); Neutrophils % (Auto) 89 % (37-80); Nucleated Red Blood Cell % 0 /100 WBC (0); Platelet Count 400 Thou/mm3 (140-440); RDW Standard Deviation 47.3 fL (36.4-46.3); Red Blood Count 3.45 Miln/mm3 (4.00-5.20); White Blood Count 12.7 Thou/mm3 (3.6-11.0)
[2024-03-17 06:25] LABS: Alanine Aminotransferase 26 U/L (10-49); Albumin, Serum 4.1 gm/dL (3.4-4.8); Albumin/Globulin Ratio 1.5 (1.2-2.2); Alkaline Phosphatase 62 U/L (46-116); Anion Gap 11 (7-16); Aspartate Amino Transferase 17 U/L (0-34); BUN/Creatinine Ratio 23 Ratio (12-20); Bilirubin,Total 0.2 mg/dL (0.3-1.2); Blood Urea Nitrogen 14 mg/dL (9-23); Calcium 9.2 mg/dL (8.3-10.6); Calcium (Corrected) 9.2 mg/dL (8.5-10.1); Carbon Dioxide 24.4 mMol/L (20.0-31.0); Chloride 104 mMol/L (98-107); Creatinine (Component) 0.6 mg/dL (0.6-1.3); Estimated Creatinine Clearance 63.5 mL/min (>60); Globulin 2.8 gm/dL (2.3-3.5); Glucose 170 mg/dL (74-106); Osmolality,Calculated 282 (275-295); Phosphorous 3.7 mg/dL (2.4-5.1); Sodium 139 mMol/L (136-145); Total Protein 6.9 gm/dL (5.7-8.2); eGFR > 60 See Note
[2024-03-17 06:39] VITALS: PULSE 70; RESP 16; O2SAT 99
[2024-03-17] MEDS: ACETAMINOPHEN 325 MG TABLET 650 MG PO (07:36)
[2024-03-17 08:00] VITALS: BP 111/56; PULSE 98; RESP 17; TEMP 36.6; O2SAT 96
[2024-03-17 08:32] VITALS: BP 111/56; PULSE 98
[2024-03-17] MEDS: cefTRIAXone/D5w 1gm IV premix 50 ML IV (08:32)
[2024-03-17] MEDS: PANTOPRAZOLE INJ 40 MG VIAL IVP (08:32)
[2024-03-17] MEDS: DOXYCYCLINE 100 MG TABLET PO (08:32)
[2024-03-17] MEDS: ASPIRIN EC 81 MG TABEC PO (08:32)
[2024-03-17] MEDS: amLODIPine BESYLATE 5 MG TABLET PO (08:32)
[2024-03-17] MEDS: ENOXAPARIN SOD INJ 40 MG/0.4 ML SYRINGE SC (08:32)
[2024-03-17] MEDS: guaiFENesin/P-EPHED TABLET 1 TAB PO (08:32)
--- NOTE | 2024-03-17 10:13 | CHAP ---
Patient expressed gratitude for visit and prayer
[2024-03-17 12:00] VITALS: BP 118/64; PULSE 74; RESP 17; TEMP 36.4; O2SAT 97
[2024-03-17 13:21] LABS: Cocci Serology, IgG Negative (Negative)
--- NOTE | 2024-03-17 13:45 | ESDS_ITS ---
<Statement entered by Edyta Patel DO - 03/17/24 17:00> I, Edyta Patel DO, attest that I was physically present for the nicholas portions of the service and evaluated the patient with the resident and I reviewed and discussed the case with the resident and agree with the resident's findings and plans of care as documented above Planned Discharge Date 03/17/24 DS: Providers Provider Date of admission: 03/15/24 21:33 Primary care physician: Quique España MD Admitting Provider: Khadar Stahl MD Attending Provider on Admission: Edyta Patel DO Attending Provider on DC: Edyta Patel DO Discharging Provider: Deven Arreguin DO DS: Diagnosis Problem List Completed Was Problem List Reviewed/Reconciled?: Yes Hospital Course Hospital Course Hospital course: Discharge summary: This is an 83-year-old female PMHx of HTN, HLD, diabetes, CVA 10 years ago, seasonal allergies, and depression presenting with 10 days of productive cough with green sputum after failing outpatient ANTIBIOTIC therapy specifically azithromycin, Augmentin and prednisone. Of note she received a CT scan about a year ago in [place] and states she might of been diagnosed with pulmonary fibrosis at that time. On exam patient had crackles throughout. Patient was admitted for observation for treatment of pneumonia and possibly pulmonary fibrosis. She was started on doxycycline, ceftriaxone and dexamethasone. Negative blood cultures and sputum. Patient was given DuoNebs every 4 hours, guaifenesin, CPT. We ordered CT of the chest which did show moderate to severe pulmonary fibrosis. On second day of admission patient noted she was improving, no longer had a cough and felt back to her baseline. We discharge patient on a Medrol Dosepak and told her to follow-up with a certified caregiver for further evaluation and treatment of pulmonary fibrosis. She would also benefit from outpatient echocardiogram given extent of her fibrosis. Discharge instructions: Please take the Medrol Dose pack as prescribed. You can use guaifenesin and your inhaler as needed. Please follow-up with a certified caregiver for further evaluation of your new diagnosis of pulmonary fibrosis. Follow-up with Primary Care Provider in 1 week. Discharge diagnoses: Acute exacerbation of idiopathic pulmonary fibrosis Community acquired pneumonia, less likely Leukocytosis HTN, HLD T2DM, well-controlle Hx of CVA Seasonal allergies Depression Patient was evaluated management pending , Deven Arreguin DO, PGY1 Time Spent with Patient Time attestation: Total time spent providing and/or coordinating discharge services: >30min Exam Vital Signs Temp Pulse Resp BP Pulse Ox O2 Del Method 97.5 F 74 17 118/64 97 Room Air 03/17/24 12:00 03/17/24 12:00 03/17/24 12:00 03/17/24 12:00 03/17/24 12:00 03/17/24 12:00 Narrative Exam Constitutional: Well nourished and in no acute distress Head: Normocephalic/Atraumatic Eyes: no conjunctival injection , symmetrical lids. ENMT: Moist Mucous Membranes CVS: RRR, S1 and S2 present, no murmurs, rubs or gallops . RESP: Mild crackles throughout, no increased work of breathing, on room air MSK: No lower extremity edema Skin: Warm to touch, Dry. No rashes or lesions. Neuro: Alert and oriented Psych: Appropriate mood and affect. Discharge Plan Plan Patient Disposition: HOME (Self Care) Care Plan Goals: Please take the Medrol Dose pack as prescribed. You can use guaifenesin and your inhaler as needed. Please follow-up with a certified caregiver for further evaluation of your new diagnosis of pulmonary fibrosis. Follow-up with Primary Care Provider in 1 week. Prescriptions/Referrals Prescriptions/Med Rec: New methylprednisolone [Medrol (Bandar)] 4 mg tablets,dose pack 4 mg PO QDAY Qty: 21 0RF guaifenesin 200 mg/5 mL liquid 200 mg PO Q4H PRN (Reason: congestion) Qty: 118 0RF Continued montelukast 10 mg Tablet 10 mg PO HS ibuprofen 600 mg Tablet 600 mg PO TID PRN (Reason: Pain) loratadine 10 mg Tablet 10 mg PO QDAY PRN (Reason: Allergy Symptoms) aspirin 81 mg Tablet,Delayed Release (Dr/Ec) 81 mg PO DAILY pantoprazole 40 mg tablet,delayed release (DR/EC) 40 mg PO DAILY Patient Comments: TAKE 1 TABLET BY MOUTH ONCE DAILY FOR PERSISTENT ACID REFLUX AND DIABETIC GASTROPARESIS metformin 1,000 mg tablet 1,000 mg PO BID albuterol sulfate [Ventolin HFA] 90 mcg/actuation HFA aerosol inhaler 2 puff inhalation Q6H PRN (Reason: shortness of breath or wheezing) Qty: 8.5 0RF rosuvastatin 20 mg tablet 20 mg PO HS amlodipine 5 mg tablet 5 mg PO QDAY Referrals: Quique España MD [Primary Care Provider] - Patient/Caregiver Discharge Instructions Other Discharge Activity Instructions:: Please take the Medrol Dose pack as prescribed. You can use guaifenesin and your inhaler as needed. Please follow-up with a certified caregiver for further evaluation of your new diagnosis of pulmonary fibrosis. Follow-up with Primary Care Provider in 1 week. Education Materials: Chest and Lung Problems, Lung Anatomy, Pulmonary Fibrosis Print Language: Polish Stand Alone Forms: Griselda Award Info., Patient Portal Info Letter Discharge Order Discharge Orders: Discharge (Routine); Ordered 03/17/24 Ordered By: Mckayla Canchola Quality Discharge Quality Measures VTE prophylaxis
== END 2024-03-17 12:32 | disposition home or self-care (01) | DRG 195 ==
LOC: SERX 19:23 → SERHOLD 21:51 → S3SX 03-16 06:10
PROVIDERS: Nurse Practitioner Family; Admitting Provider Student in an Organized Health Care Education/Training Program; Emergency Provider Emergency Medicine; PCP Family Medicine; Visit Provider Internal Medicine
DX: J18.9 Pneumonia, unspecified organism (principal); I10 Essential (primary) hypertension; E78.5 Hyperlipidemia, unspecified; J30.2 Other seasonal allergic rhinitis; F32.A Depression, unspecified; E11.9 Type 2 diabetes mellitus without complications; R63.4 Abnormal weight loss; J84.112 Idiopathic pulmonary fibrosis; Z68.24 Body mass index [BMI] 24.0-24.9, adult; Z63.4 Disappearance and death of family member; Z66 Do not resuscitate; Z86.73 Personal history of transient ischemic attack (TIA), and cerebral infarction without residual deficits; Z79.899 Other long term (current) drug therapy; Z79.82 Long term (current) use of aspirin; Z11.52 Encounter for screening for COVID-19; Z79.84 Long term (current) use of oral hypoglycemic drugs
CPT/HCPCS: 36415; 71046; 71250; 80053; 83605; 83735; 84100; 84145; 85025; 86331; 86635; 87040; 87081; 87205; 87400; 87634; 87811; 94640; 94664; 94667; 99285; A9270; J0696; J1100; J1650; J1815; J2470; J3475

== ENCOUNTER → 2024-03-28 | Outpatient (CLI) | payer OTHER, SELFPAY ==
[2024-03-28 09:36] LABS: Basophils # (Auto) 0.1 Thou/mm3 (0.0-0.2); Basophils % (Auto) 1 % (0-2.5); Eosinophils # (Auto) 0.3 Thou/mm3 (0.0-0.5); Eosinophils % (Auto) 3 % (0-10); Immature Granulocytes % (Auto) 0 % (0-0); Immature Granulocytes Auto 0.04 Thou/mm3 (0.00-0.00); Lymphocytes # (Auto) 2.3 Thou/mm3 (1.0-4.8); Lymphocytes % (Auto) 25 % (10-50); Mean Corpuscular HGB Conc 33.3 g/dl (31.0-37.0); Mean Corpuscular Hemoglobin 30.9 pg (25.0-35.0); Mean Corpuscular Volume 93 fL (80-100); Monocytes # (Auto) 0.5 Thou/mm3 (0.0-0.8); Monocytes % (Auto) 6 % (0-12); Neutrophils # (Auto) 6.2 Thou/mm3 (1.8-7.7); Neutrophils % (Auto) 65 % (37-80); Nucleated Red Blood Cell % 0 /100 WBC (0); Platelet Count 339 Thou/mm3 (140-440); RDW Standard Deviation 47.6 fL (36.4-46.3); Red Blood Count 4.21 Miln/mm3 (4.00-5.20); White Blood Count 9.5 Thou/mm3 (3.6-11.0)
[2024-03-28 10:19] LABS: Alanine Aminotransferase 22 U/L (10-49); Albumin, Serum 4.1 gm/dL (3.4-4.8); Albumin/Globulin Ratio 1.7 (1.2-2.2); Alkaline Phosphatase 70 U/L (46-116); Anion Gap 8 (7-16); Aspartate Amino Transferase 19 U/L (0-34); BUN/Creatinine Ratio 17 Ratio (12-20); Bilirubin,Total 0.6 mg/dL (0.3-1.2); Blood Urea Nitrogen 10 mg/dL (9-23); Calcium 9.6 mg/dL (8.3-10.6); Calcium (Corrected) 9.6 mg/dL (8.5-10.1); Chloride 103 mMol/L (98-107); Creatinine (Component) 0.6 mg/dL (0.6-1.3); Globulin 2.4 gm/dL (2.3-3.5); Glucose 125 mg/dL (74-106); Osmolality,Calculated 281 (275-295); Potassium 4.7 mMol/L (3.4-5.1); Sodium 141 mMol/L (136-145); Total Protein 6.5 gm/dL (5.7-8.2); eGFR > 60 See Note
== END | disposition home or self-care (01) ==
PROVIDERS: PCP Family Medicine; Referring Provider Family Medicine; Visit Provider Family Medicine
DX: J84.10 Pulmonary fibrosis, unspecified (principal)
CPT/HCPCS: 36415; 80053; 85025

== ENCOUNTER → 2024-06-13 | Outpatient (CLI) | payer OTHER, SELFPAY ==
--- NOTE | 2024-06-13 13:45 | XR_ITS ---
Examination: Screening digital mammography, bilateral Computer aided detection 3-D breast Tomosynthesis, bilateral Date and time of exam: June 13, 2024 1355 hours Compared to mammograms dating to January 21, 2016 Indication: Screening Technique: Nonmagnified MLO, CC views of the breasts to been obtained, reconstructed from 3-D Tomosynthesis images. R2 computer aided detection program utilized for evaluation of suspicious masses and/or abnormal calcifications. 3-D Tomosynthesis images obtained. Findings: The breasts are heterogeneously dense, which may obscure small masses Benign calcifications No interval suspicious masses Impression: BI-RADS category II: Benign Findings. Recommend 1 year follow-up mammogram. Given the strong family history breast cancer, daughter, sister, consider baseline bilateral breast sonography follow-up
== END | disposition home or self-care (01) ==
LOC: CDIM 13:35
PROVIDERS: PCP Family Medicine; Referring Provider Family Medicine; Visit Provider Family Medicine
DX: Z12.31 Encounter for screening mammogram for malignant neoplasm of breast (principal); R92.323 Mammographic fibroglandular density, bilateral breasts; R92.1 Mammographic calcification found on diagnostic imaging of breast; Z80.3 Family history of malignant neoplasm of breast
CPT/HCPCS: 77063; 77067

== ENCOUNTER → 2024-07-05 | Outpatient (CLI) | payer OTHER, SELFPAY ==
--- NOTE | 2024-07-05 15:00 | XR_ITS ---
Examination: Breast ultrasound complete, bilateral Date and time of exam: June 27, 2024 1513 hours INDICATIONS: Strong family history breast cancer, daughter, sister Technique: Real-time grayscale ultrasonographic imaging bilateral breasts, including all 4 quadrants as well as nipple retroareolar and axillary regions. Findings: Sonographic images right breast No cystic or solid mass Sonographic images left breast 12:00 calcification 6 x 6 mm IMPRESSION: BI-RADS Category 2: Benign findings
== END | disposition home or self-care (01) ==
PROVIDERS: PCP Family Medicine; Referring Provider Family Medicine; Visit Provider Family Medicine
DX: R92.2 Inconclusive mammogram (principal); Z80.3 Family history of malignant neoplasm of breast
CPT/HCPCS: 76641

== ENCOUNTER → 2024-08-21 | Outpatient (CLI) | payer OTHER, SELFPAY ==
[2024-08-21 08:24] LABS: Basophils # (Auto) 0.1 Thou/mm3 (0.0-0.2); Basophils % (Auto) 1 % (0-2.5); Eosinophils # (Auto) 0.4 Thou/mm3 (0.0-0.5); Eosinophils % (Auto) 5 % (0-10); Hematocrit 37.5 % (36.0-46.0); Hemoglobin 12.4 g/dL (12.0-16.0); Immature Granulocytes Auto 0.04 Thou/mm3 (0.00-0.00); Lymphocytes # (Auto) 2.4 Thou/mm3 (1.0-4.8); Lymphocytes % (Auto) 29 % (10-50); Mean Corpuscular HGB Conc 33.1 g/dl (31.0-37.0); Mean Corpuscular Hemoglobin 31.6 pg (25.0-35.0); Mean Corpuscular Volume 95 fL (80-100); Monocytes # (Auto) 0.7 Thou/mm3 (0.0-0.8); Monocytes % (Auto) 8 % (0-12); Neutrophils # (Auto) 4.7 Thou/mm3 (1.8-7.7); Neutrophils % (Auto) 58 % (37-80); Nucleated Red Blood Cell # 0.00 Thou/mm3 (0.00-0.00); Nucleated Red Blood Cell % 0 /100 WBC (0); Platelet Count 284 Thou/mm3 (140-440); RDW Standard Deviation 49.3 fL (36.4-46.3); Red Blood Count 3.93 Miln/mm3 (4.00-5.20); White Blood Count 8.2 Thou/mm3 (3.6-11.0)
[2024-08-21 08:25] LABS: Glucose Estimated Average 126 mg/dL (80-131); Hemoglobin A1C 6.0 % Hgb (4.8-6.0)
[2024-08-21 08:37] LABS: Alanine Aminotransferase 16 U/L (10-49); Albumin, Serum 4.2 gm/dL (3.4-4.8); Albumin/Globulin Ratio 1.4 (1.2-2.2); Alkaline Phosphatase 84 U/L (46-116); Anion Gap 10 (7-16); Aspartate Amino Transferase 21 U/L (0-34); BUN/Creatinine Ratio 22 Ratio (12-20); Bilirubin,Total 0.5 mg/dL (0.3-1.2); Blood Urea Nitrogen 13 mg/dL (9-23); Calcium 9.1 mg/dL (8.3-10.6); Calcium (Corrected) 9.1 mg/dL (8.5-10.1); Carbon Dioxide 29.4 mMol/L (20.0-31.0); Cardiac Risk Estimate 2.6 RATIO (3.7-5.6); Chloride 105 mMol/L (98-107); Cholesterol 105 mg/dL (132-200); Creatinine (Component) 0.6 mg/dL (0.6-1.3); Globulin 2.9 gm/dL (2.3-3.5); Glucose 117 mg/dL (74-106); HDL Cholesterol 41 mg/dL (40-60); LDL Cholesterol,Calculated 48 mg/dL (0-130); Osmolality,Calculated 287 (275-295); Potassium 4.0 mMol/L (3.4-5.1); Sodium 144 mMol/L (136-145); Total Protein 7.1 gm/dL (5.7-8.2); Triglycerides 78 mg/dL (30-150); eGFR > 60 See Note
== END | disposition home or self-care (01) ==
LOC: COPL 07:17
PROVIDERS: PCP Family Medicine; Referring Provider Family Medicine; Visit Provider Family Medicine
DX: E11.59 Type 2 diabetes mellitus with other circulatory complications (principal); E78.2 Mixed hyperlipidemia; I10 Essential (primary) hypertension; D64.9 Anemia, unspecified
CPT/HCPCS: 36415; 80053; 80061; 83036; 85025

== ENCOUNTER → 2024-09-21 | Outpatient (CLI) | payer OTHER, SELFPAY ==
--- NOTE | 2024-09-21 12:40 | XR_ITS ---
Examination: Bone densitometry Date and time of exam:September 21, 2024 1313 hours INDICATIONS: Hysterectomy age 47 calcium 6 months vitamin D 5 years Technique: Lumbar spine and hip total bone mineralization values of an calculated. Peak reference and age match control results have been displayed. Findings: Lumbar spine total bone mineralization is1.152 gm/cm2. This is 1.0 standard deviations above peak reference. This is 3.7 standard deviations above age-matched controls. Hip total bone mineralization is 0.842 gm/cm2 This is 0.9 standard deviations below peak reference. This is 1.2 standard deviations above age-matched controls Impression: There is normal mineralization based on lumbar spine measurements. There is osteopenia based on hip measurements Lumbar mineralization is decreased 4.2% compared with March 03, 2022 Hip mineralization is decreased 2.8% compared with March 03, 2022
== END | disposition home or self-care (01) ==
LOC: CDIM 12:23
PROVIDERS: PCP Family Medicine; Referring Provider Family Medicine; Visit Provider Family Medicine
DX: M85.88 Other specified disorders of bone density and structure, other site (principal)
CPT/HCPCS: 77080

== ENCOUNTER → 2024-11-09 | Outpatient (CLI) | payer OTHER, SELFPAY ==
--- NOTE | 2024-11-09 14:11 | XR_ITS ---
Examination: PA lateral chest 2 views TECHNIQUE: Upright PA lateral chest 2 views Date and time: November 09 2024 1427 hours, comparison March 15, 2024 INDICATIONS: Coughing 5 days. FINDINGS: Bilateral significant pulmonary fibrosis Suspicious for mild superimposed pneumonia right base Normal heart size Prominent osteopenia IMPRESSION: Bilateral significant pulmonary fibrosis Suspicious for superimposed pneumonia right base
== END | disposition home or self-care (01) ==
LOC: CDIM 13:59
PROVIDERS: PCP Family Medicine; Referring Provider Family Medicine; Visit Provider Family Medicine
DX: J84.10 Pulmonary fibrosis, unspecified (principal)
CPT/HCPCS: 71046

== ENCOUNTER → 2025-01-16 | Outpatient (CLI) | payer OTHER, SELFPAY ==
[2025-01-16 10:06] LABS: Alanine Aminotransferase 11 U/L (10-49); Albumin, Serum 4.5 gm/dL (3.4-4.8); Albumin/Globulin Ratio 1.5 (1.2-2.2); Alkaline Phosphatase 70 U/L (46-116); Anion Gap 9 (7-16); Aspartate Amino Transferase 21 U/L (0-34); BUN/Creatinine Ratio 15 Ratio (12-20); Bilirubin,Total 0.5 mg/dL (0.3-1.2); Blood Urea Nitrogen 9 mg/dL (9-23); Calcium 9.5 mg/dL (8.3-10.6); Calcium (Corrected) 9.5 mg/dL (8.5-10.1); Carbon Dioxide 31.5 mMol/L (20.0-31.0); Cardiac Risk Estimate 2.5 RATIO (3.7-5.6); Chloride 106 mMol/L (98-107); Cholesterol 99 mg/dL (132-200); Creatinine (Component) 0.6 mg/dL (0.6-1.3); Globulin 3.1 gm/dL (2.3-3.5); Glucose 123 mg/dL (74-106); Glucose Estimated Average 134 mg/dL (80-131); HDL Cholesterol 39 mg/dL (40-60); Hemoglobin A1C 6.3 % Hgb (4.8-6.0); LDL Cholesterol,Calculated 44 mg/dL (0-130); Osmolality,Calculated 290 (275-295); Potassium 4.1 mMol/L (3.4-5.1); Sodium 146 mMol/L (136-145); Total Protein 7.6 gm/dL (5.7-8.2); Triglycerides 80 mg/dL (30-150); eGFR > 60 See Note
== END | disposition home or self-care (01) ==
PROVIDERS: PCP Family Medicine; Referring Provider Family Medicine; Visit Provider Family Medicine
DX: E11.69 Type 2 diabetes mellitus with other specified complication (principal); E78.2 Mixed hyperlipidemia
CPT/HCPCS: 36415; 80053; 80061; 83036

== ENCOUNTER 2025-02-02 10:22 | Emergency (ER) | payer OTHER, SELFPAY ==
[2025-02-02 10:25] VITALS: BMI 25.2
[2025-02-02 11:13] VITALS: BP 146/77; PULSE 65; RESP 19; TEMP 36.7; O2SAT 95; BMI 25.2
--- NOTE | 2025-02-02 11:27 | EKG_ITS ---
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1940 Requested By: Mark Rush Order Number: [id number] Reading MD: Mark Rush Measurements Intervals [place] Rate: 69 P: 50 MO: 214 QRS: -47 QRSD: 88 T: 55 QT: 398 QTc: 427 Interpretive Statements SINUS RHYTHM WITH FIRST DEGREE AV BLOCK LEFT ANTERIOR FASCICULAR BLOCK [QRS AXIS <= -45, QR IN I, RS IN II] POSSIBLE ANTERIOR MYOCARDIAL INFARCTION , PROBABLY OLD [30 ms Q WAVE IN V3/V4, OR R < 0.2 mV IN V4] Compared to ECG 05/01/2023 01:08:31 Left anterior fascicular block now present Myocardial infarct finding now present Sinus bradycardia no longer present Left-axis deviation no longer present T-wave abnormality no longer present /store/S0/[id number]/[id number].pdf
--- NOTE | 2025-02-02 11:27 | XR_ITS ---
EXAMINATION: PA chest single view TECHNIQUE: Upright PA chest single view Date and time: February 02, 2025, 1223 hours INDICATIONS: Left-sided hand numbness and headaches beginning 2 days ago. FINDINGS: Interstitial disease throughout the lungs consistent with pulmonary fibrosis Findings suspicious for superimposed bilateral pneumonia. Normal heart size Severe osteopenia Right axillary surgical clips IMPRESSION: Severe bilateral pulmonary fibrosis Superimposed bilateral pneumonia
--- NOTE | 2025-02-02 11:28 | XR_ITS ---
Examination: CT brain head without contrast. 2-D sagittal coronal reconstructions Date and time of exam: 02/02/2025 at 11:42 a.m. CTDI: vol (mGy): 52 DLP: (mGycm): 1040 CLINICAL HISTORY: Dizziness for 3 days Technique: Multiple CT axial sections of the brain have been obtained, 5 mm slice thickness. Contrast has not been administered. 2-D sagittal, coronal reconstructions have been obtained Low dose protocols were performed. One or more of the following dose reduction techniques were used; automated exposure control, adjustment of the mA and/or KV according to patient size, use of iterative reconstruction technique. Findings: No significant ventricular enlargement. Intra-axial or extra-axial hemorrhage density is not seen. No mass effect or midline shift Basal cisterns are not remarkable. Fourth ventricle is midline. Cranial vault intact. Impression: Negative for acute hemorrhage, mass effect or midline shift
--- NOTE | 2025-02-02 11:28 | PD.EDRME ---
Rapid Medical Screening Exam E Arrival date/time: 02/02/25 10:22 84-year-old female with a history of hypertension, type 2 diabetes, hyperlipidemia, presents to the emergency room with a chief complaint of left hand numbness, left-sided headache x 2 days I have greeted and performed a focused initial assessment of this patient. A comprehensive ED assessment and evaluation of the patient, analysis of all test results, and completion of the medical decision making process will be conducted by additional ED providers. Chief Complaint: Headache Time Seen by Provider: 02/02/25 11:13 Vital signs: Vital Signs Temperature 98.0 F 02/02/25 11:13 Pulse Rate 65 02/02/25 11:13 Respiratory Rate 19 02/02/25 11:13 Blood Pressure 146/77 H 02/02/25 11:13 Pulse Oximetry (%) 95 02/02/25 11:13 Oxygen Delivery Method Room Air 02/02/25 11:13 Vital signs reviewed by provider: Yes Exam: Strong and regular rhythm Clear bilateral lung sounds Clinical Impression: Chest pain
[2025-02-02 12:55] LABS: Collection Type, Urine Clean Catch
[2025-02-02 12:56] LABS: Basophils # (Auto) 0.0 Thou/mm3 (0.0-0.2); Basophils % (Auto) 1 % (0-2.5); Eosinophils # (Auto) 0.2 Thou/mm3 (0.0-0.5); Eosinophils % (Auto) 3 % (0-10); Hematocrit 39.1 % (36.0-46.0); Hemoglobin 12.9 g/dL (12.0-16.0); Immature Granulocytes Auto 0.02 Thou/mm3 (0.00-0.00); Lymphocytes # (Auto) 2.4 Thou/mm3 (1.0-4.8); Lymphocytes % (Auto) 31 % (10-50); Mean Corpuscular HGB Conc 33.0 g/dl (31.0-37.0); Mean Corpuscular Hemoglobin 31.5 pg (25.0-35.0); Mean Corpuscular Volume 95 fL (80-100); Monocytes # (Auto) 0.5 Thou/mm3 (0.0-0.8); Monocytes % (Auto) 6 % (0-12); Neutrophils # (Auto) 4.6 Thou/mm3 (1.8-7.7); Neutrophils % (Auto) 59 % (37-80); Nucleated Red Blood Cell # 0.00 Thou/mm3 (0.00-0.00); Nucleated Red Blood Cell % 0 /100 WBC (0); Platelet Count 303 Thou/mm3 (140-440); RDW Standard Deviation 48.9 fL (36.4-46.3); Red Blood Count 4.10 Miln/mm3 (4.00-5.20); White Blood Count 7.8 Thou/mm3 (3.6-11.0)
[2025-02-02 13:03] LABS: INR 1.1 (0.9-1.3); Partial Thromboplastin Time 27.1 Seconds (22.0-36.0); Prothrombin Time 11.6 Seconds (9.0-12.2)
[2025-02-02 13:04] LABS: Bacteria,Urine Rare; Bilirubin,Urine Negative (Negative); Blood,Urine Trace (Negative); Clarity,Urine Clear (Clear/Hazy); Color,Urine Colorless (Lt Yel-Yel); Culture Indicated,Urine Not Indicated; Glucose, Urine Negative (Negative); Ketones,Urine Negative (Negative); Leukocyte Esterase,Urine Negative (Negative); Nitrite,Urine Negative (Negative); PH,Urine 6.5 (5.0-7.0); Protein,Urine Negative (Neg - Trace); RBC,Urine 2 /hpf (0-3); Specific Gravity,Urine 1.008 (1.001-1.035); Squamous Epithelial Cell,Urine < 1 /hpf (0-5); Urobilinogen,Urine Negative mg/dL (0.0-1.0); WBC,Urine 2 /hpf (0-5)
[2025-02-02 13:11] LABS: Alanine Aminotransferase 13 U/L (10-49); Albumin, Serum 4.8 gm/dL (3.4-4.8); Albumin/Globulin Ratio 1.4 (1.2-2.2); Alkaline Phosphatase 69 U/L (46-116); Anion Gap 10 (7-16); Aspartate Amino Transferase 21 U/L (0-34); BUN/Creatinine Ratio 13 Ratio (12-20); Bilirubin,Total 0.5 mg/dL (0.3-1.2); Blood Urea Nitrogen 8 mg/dL (9-23); Calcium 9.8 mg/dL (8.3-10.6); Calcium (Corrected) 9.8 mg/dL (8.5-10.1); Carbon Dioxide 29.5 mMol/L (20.0-31.0); Chloride 104 mMol/L (98-107); Creatinine (Component) 0.6 mg/dL (0.6-1.3); Estimated Creatinine Clearance 67.9 mL/min (>60); Free T4 (Free Thyroxine) 1.21 ng/dL (0.89-1.76); Globulin 3.4 gm/dL (2.3-3.5); Glucose 128 mg/dL (74-106); Magnesium 2.0 mg/dL (1.6-2.6); Osmolality,Calculated 285 (275-295); Potassium 4.1 mMol/L (3.4-5.1); Sodium 143 mMol/L (136-145); Thyroid Stimulating Hormone 1.12 uIU/mL (0.55-4.78); Total Protein 8.2 gm/dL (5.7-8.2); Troponin I < 0.002 ng/mL (0.0-0.045); eGFR > 60 See Note
[2025-02-02 13:25] LABS: B-Type Natriuretic Peptide 23 pg/mL (0-100)
--- NOTE | 2025-02-02 14:34 | PD.EDHA ---
ED Headache RME/HPI General Chief Complaint: Headache Stated Complaint: HEADACHE X1 DAY, L EAR PAIN X1 WEEK, L HAND NUMB Time Seen by Provider: 02/02/25 11:13 Arrival date/time: 02/02/25 10:22 84-year-old female patient with significant history of hypertension, diabetes mellitus, pulmonary fibrosis, came in for evaluation regarding headache. Onset of symptoms since yesterday as headache described as dull ache, severity moderate. Patient also complained of pain to the left ear for more than a week. Also complained of left hand numbness. Denies any upper or lower extremity weakness. Patient also complaining of cough, severity mild. No fever noted patient is ambulatory denies any trauma or fall. Patient is taking 81 mg aspirin daily. RME / HPI RME / HPI Narrative: 02/02/25 10:22 84-year-old female with a history of hypertension, type 2 diabetes, hyperlipidemia, presents to the emergency room with a chief complaint of left hand numbness, left-sided headache x 2 days I have greeted and performed a focused initial assessment of this patient. A comprehensive ED assessment and evaluation of the patient, analysis of all test results, and completion of the medical decision making process will be conducted by additional ED providers. Exam: Strong and regular rhythm Clear bilateral lung sounds Impression: Chest pain Related Data Home Medications ?Medication ?Instructions ?Recorded ?Confirmed aspirin 81 mg tablet,delayed 81 mg PO DAILY 07/02/22 03/16/24 release metformin 1,000 mg tablet 1,000 mg PO BID 07/02/22 03/16/24 pantoprazole 40 mg tablet,delayed 40 mg PO DAILY 07/02/22 03/16/24 release ibuprofen 600 mg tablet 600 mg PO TID PRN Pain 04/30/23 03/16/24 loratadine 10 mg tablet 10 mg PO QDAY PRN Allergy Symptoms 04/30/23 03/16/24 montelukast 10 mg tablet 10 mg PO HS 04/30/23 03/16/24 amlodipine 5 mg tablet 5 mg PO QDAY 03/16/24 03/16/24 rosuvastatin 20 mg tablet 20 mg PO HS 03/16/24 03/16/24 Previous Rx's ?Medication ?Instructions ?Recorded albuterol sulfate 90 mcg/actuation 2 puff inhalation Q6H PRN 02/01/23 aerosol inhaler (Ventolin HFA) shortness of breath or wheezing #8.5 grams guaifenesin 200 mg/5 mL oral liquid 200 mg (5 mL) PO Q4H PRN 03/17/24 congestion #118 mL methylprednisolone 4 mg tablets in 4 mg PO QDAY #21 tabs 03/17/24 a dose pack (Medrol (Bandar)) levofloxacin 750 mg tablet 750 mg PO Q24H 7 days #7 tabs 02/02/25 Allergies Allergy/AdvReac Type Severity Reaction Status Date / Time No Known Allergies Allergy Verified 02/02/25 10:27 Review of Systems Review of Systems Narrative Review of Systems: Review of system reviewed and within normal limits except mentioned in HPI ED Exam Narrative Physical exam: VITAL SIGNS: Reviewed. GENERAL APPEARANCE: Alert and interactive, follows commands, no acute distress, HEAD AND FACE: Non-traumatic. ENT: PERRL, pink conjunctivitis, eyelid no trauma, Mucous membrane moist. NECK: Supple, nontender, no nuchal rigidity. CHEST: No tenderness, no crepitus, no paradoxical movement, no retractions. LUNGS: Clear, well ventilated, symmetric, no rales, no wheezing, no ronchi, no stridor, good breath sounds bilaterally. HEART: Regular rate, regular rhythm, no murmur, no gallops. ABDOMEN: Soft, positive bowel sounds, nondistended, no guarding, nontender, no rebound, no masses, RECTAL: Deferred. GENITAL: Deferred. NEUROLOGICAL: Gross motor function intact sensory function intact, Appropriate for age. MUSCULOSKELETAL: low back nontender, full range of motion. EXTREMITIES: Nontender, full range of motion. SKIN: Color pink, dry, no rash, no lacerations, no abrasions, no contusions. LYMPHATICS: Deferred. Course Quality Measures none Orders Category Date Time Status EKG (ED ONLY) *Do not use* NOW Care 02/02/25 11:[address] head/brain wo con Stat Exams 02/02/25 11:28 Completed EKG (ED Only) Stat Exams 02/02/25 11:27 Draft XR chest 1V portable Stat Exams 02/02/25 11:27 Completed B-Type Natriuretic Peptide Stat Lab 02/02/25 12:11 Completed CBC Stat Lab 02/02/25 12:11 Completed Comprehensive Metabolic Panel Stat Lab 02/02/25 12:11 Completed Free T4 (Free Thyroxine) Stat Lab 02/02/25 12:11 Completed Magnesium Stat Lab 02/02/25 12:11 Completed Partial Thromboplastin Time Stat Lab 02/02/25 12:11 Completed Prothrombin Time with INR Stat Lab 02/02/25 12:11 Completed TSH [Thyroid Stimulating Hormone] Stat Lab 02/02/25 12:11 Completed Troponin I Stat Lab 02/02/25 12:11 Completed Urinalysis, C/S if Indicated Stat Lab 02/02/25 12:45 Completed levoFLOXacin [Levaquin] Med 02/02/25 14:34 Once 500 mg PO X1 ONE Vital Signs Vital signs: Vital Signs Temperature 98.0 F 02/02/25 11:13 Pulse Rate 65 02/02/25 11:13 Respiratory Rate 19 02/02/25 11:13 Blood Pressure 146/77 H 02/02/25 11:13 Pulse Oximetry (%) 95 02/02/25 11:13 Oxygen Delivery Method Room Air 02/02/25 11:13 Headache MDM Narrative MDM Narrative:: 84-year-old female patient with significant history of hypertension, diabetes mellitus, pulmonary fibrosis, came in for evaluation regarding headache. Onset of symptoms since yesterday as headache described as dull ache, severity moderate. Patient also complained of pain to the left ear for more than a week. Also complained of left hand numbness. Denies any upper or lower extremity weakness. Patient also complaining of cough, severity mild. No fever noted patient is ambulatory denies any trauma or fall. Patient is taking [address] scan of the head came back unremarkable. Results discussed with the patient. Chest x-ray showed pulmonary fibrosis with superimposed pneumonia. Laboratory workup all came back unremarkable. Patient was given Levaquin p.o. in the emergency room. Patient told me that headache is totally gone prior to discharge. Still stable for discharge home Patient data External records reviewed:: None Clinical information provided by:: patient and family Social determinants that could affect healthcare access:: none Patient has the following chronic illnesses:: Hypertension diabetes mellitus, pulmonary fibrosis How is presenting disease/condition affected by chronic disease/condition?: exacerbated by Evaluation data The following diagnostics were reviewed and interpreted by me:: lab results, radiology exam(s) and EKG tracing(s) Lab and/or radiology exams considered but not ordered:: None Interpretation Summary: EKG showed normal sinus rhythm, ventricular rate of 69 bpm, no ST segment elevation or depression noted. Medications / Prescriptions Medications or Prescriptions considered but not ordered:: None Medication administrations:: Medication Administration History Discontinued Medications Levofloxacin (Levofloxacin 250 Mg Tablet) 500 mg PO X1 ONE Stop: 02/02/25 14:35 Levaquin Consultations Consultation(s) initiated? (list below): No Diagnosis Differential diagnosis headache: migraine, subarachnoid hemorrhage and headache Most likely diagnosis given after review of the tests above:: Pneumonia, headache Admission Indicated Admission indicated?: not indicated Admission Request Was there a request for admission?: No Disposition Plan Disposition Plan: Discharge Discharge Attestation Discharge Attestation: The patient and all family members were given an opportunity to ask questions and understood the discharge instructions. Discharge instructions specifically effects, indications for sooner follow up or return to the emergency department, and the expected course of current diagnosis. Patient condition: Stable Discharge Plan Plan Patient Disposition: HOME (Self Care) Discharge Disposition comment: Stable Prescriptions/Referrals Prescriptions/Med Rec: New levofloxacin 750 mg tablet 750 mg PO Q24H 7 Days Qty: 7 0RF No Action montelukast 10 mg Tablet 10 mg PO HS ibuprofen 600 mg Tablet 600 mg PO TID PRN (Reason: Pain) loratadine 10 mg Tablet 10 mg PO QDAY PRN (Reason: Allergy Symptoms) aspirin 81 mg Tablet,Delayed Release (Dr/Ec) 81 mg PO DAILY pantoprazole 40 mg tablet,delayed release (DR/EC) 40 mg PO DAILY Patient Comments: TAKE 1 TABLET BY MOUTH ONCE DAILY FOR PERSISTENT ACID REFLUX AND DIABETIC GASTROPARESIS metformin 1,000 mg tablet 1,000 mg PO BID albuterol sulfate [Ventolin HFA] 90 mcg/actuation HFA aerosol inhaler 2 puff inhalation Q6H PRN (Reason: shortness of breath or wheezing) Qty: 8.5 0RF rosuvastatin 20 mg tablet 20 mg PO HS amlodipine 5 mg tablet 5 mg PO QDAY methylprednisolone [Medrol (Bandar)] 4 mg tablets,dose pack 4 mg PO QDAY Qty: 21 0RF guaifenesin 200 mg/5 mL liquid 200 mg PO Q4H PRN (Reason: congestion) Qty: 118 0RF Referrals: Quique España MD [Primary Care Provider, Family Practice] - In 1 week Problem List Clinical Impression: Headache, PNA (pneumonia) Patient/Caregiver Discharge Instructions Discharge Activity: activity as tolerated Education Materials: ED Pneumonia (Adult) Additional Instructions: Thank you for the opportunity for serving you today. You are stable for discharged . You are advised to: Follow-up with your PCP in 1 to 2 days Return to ED for worsening of symptoms Increase oral fluids Take medication as prescribed Print Language: Amharic Stand Alone Forms: Griselda Award Info., Patient Portal Info Letter PA/NUCLEAR MEDICINE CHIEF TECHNOLOGIST Supervising Physician PA/NUCLEAR MEDICINE CHIEF TECHNOLOGIST Supervising Physician: MD Amol
[2025-02-02 14:40] VITALS: BP 123/63; PULSE 63; RESP 16; TEMP 36.7; O2SAT 97
== END 2025-02-02 14:44 | disposition home or self-care (01) ==
PROVIDERS: Nurse Practitioner Family; Emergency Provider Emergency Medicine; PCP Family Medicine
DX: J18.9 Pneumonia, unspecified organism (principal); R51.9 Headache, unspecified; E11.9 Type 2 diabetes mellitus without complications; E78.5 Hyperlipidemia, unspecified; I10 Essential (primary) hypertension; J84.10 Pulmonary fibrosis, unspecified; Z79.84 Long term (current) use of oral hypoglycemic drugs; Z79.82 Long term (current) use of aspirin
CPT/HCPCS: 36415; 70450; 71045; 80053; 81001; 83735; 83880; 84439; 84443; 84484; 85025; 85610; 85730; 93005; 99283; A9270